=== PATIENT | female | born 1970 | race Two or more races ===

== ENCOUNTER 2023-03-02 00:39 | Emergency (ER) | payer MEDICAID ==
[~2023-03-02] VITALS: Ht 162.6 cm; Wt 94.0 kg
[2023-03-02 02:12] LABS: Basophils # (auto) 0.1 10 ^3/uL (0-0.2); Basophils % (auto) 0.7 % (0.0-2.0); Eosinophils # (auto) 0.2 10 ^3/uL (0-0.8); Eosinophils % (auto) 1.6 % (0.0-7.0); Hemoglobin 14.9 g/dL (12.2-16.2); Lymphocytes # (auto) 3.1 10 ^3/uL (0.4-5.4); Lymphocytes % (auto) 31.4 % (10.0-50.0); Mean Corpuscular Hemoglobin 30.8 pg (28.0-32.0); Mean Corpuscular Volume 90.6 fL (80.0-100.0); Monocytes # (auto) 0.4 10 ^3/uL (0-1.3); Monocytes % (auto) 4.5 % (0.0-12.0); Neutrophils # (auto) 6.1 10 ^3/uL (1.6-8.6); Neutrophils % (auto) 61.8 % (37.0-80.0); Nucleated Red Blood Cells % 0.1 %; Red Blood Cells 4.85 10^6/uL (4.0-5.20); Red Cell Distribution Width 15.3 % (11.8-14.3); White Blood Cell 9.9 10^3/uL (4.4-10.8)
[2023-03-02 02:31] LABS: CRP High Sensitivity 0.36 mg/dL (< 0.3)
[2023-03-02 02:47] LABS: Albumin 3.3 g/dL (3.4-5.0); Calcium 8.7 mg/dL (8.5-10.1); Potassium 3.8 mmol/L (3.5-5.1)
[2023-03-02 02:51] LABS: BUN/Creatinine Ratio 17.1 (10.0-20.0); Bilirubin, Total 0.2 mg/dL (0.2-1.0); Total Protein 7.3 g/dL (6.4-8.2)
[2023-03-02] MEDS ORDERED: HYDROcodone-ACET 10/325MG TAB PO ONE (06:00)
[2023-03-02] MEDS ORDERED: cloNIDine HCL 0.1 MG TAB PO ONE (06:00)
[2023-03-02 09:53] VITALS: BP 124/65; PULSE 78; RESP 18; TEMP 98; O2SAT 95
== END 2023-03-02 10:01 | disposition home or self-care (01) ==
LOC: ER 00:39
DX: E11.621 Type 2 diabetes mellitus with foot ulcer (principal); L97.529 Non-pressure chronic ulcer of other part of left foot with unspecified severity; Z88.6 Allergy status to analgesic agent; Z88.8 Allergy status to other drugs, medicaments and biological substances
CPT/HCPCS: 36415; 73700; 80053; 85025; 85652; 86141

== ENCOUNTER 2023-06-10 22:28 | Emergency (ER) | payer MEDICAID ==
[~2023-06-10] VITALS: Ht 162.6 cm; Wt 90.0 kg
[2023-06-10 22:57] VITALS: PULSE 10; RESP 10; O2SAT 92
[2023-06-10 23:22] LABS: Basophils # (auto) 0.1 10 ^3/uL (0-0.2); Basophils % (auto) 0.6 % (0.0-2.0); Eosinophils # (auto) 0.1 10 ^3/uL (0-0.8); Eosinophils % (auto) 1.4 % (0.0-7.0); Hematocrit 42.1 % (36.0-46.0); Hemoglobin 14.4 g/dL (12.2-16.2); Lymphocytes # (auto) 2.9 10 ^3/uL (0.4-5.4); Lymphocytes % (auto) 36.4 % (10.0-50.0); Mean Corpuscular Hemoglobin 31.2 pg (28.0-32.0); Mean Corpuscular Hgb Conc. 34.1 g/dL (32.0-36.0); Mean Corpuscular Volume 91.3 fL (80.0-100.0); Monocytes # (auto) 0.4 10 ^3/uL (0-1.3); Monocytes % (auto) 5.3 % (0.0-12.0); Neutrophils # (auto) 4.5 10 ^3/uL (1.6-8.6); Neutrophils % (auto) 56.3 % (37.0-80.0); Red Blood Cells 4.61 10^6/uL (4.0-5.20); Red Cell Distribution Width 15.3 % (11.8-14.3); White Blood Cell 8.1 10^3/uL (4.4-10.8)
[2023-06-10 23:37] LABS: INR 1.02 (0.9-1.15); Partial Thromboplastin Time 29.9 SEC (24.5-34.5); Prothrombin Time 10.7 sec (9.3-11.8)
[2023-06-10 23:40] LABS: Alanine Aminotransferase 14 U/L (7-40); Albumin 3.9 g/dL (3.2-4.8); Alkaline Phosphatase 81 U/L (46-116); Anion Gap 4 (5-15); Aspartate Aminotransferase 13 U/L (13-40); BUN/Creatinine Ratio 15.1 (10.0-20.0); Bilirubin, Total 0.2 mg/dL (0.2-1.0); Blood Urea Nitrogen 16 mg/dL (9-23); Calcium 9.1 mg/dL (8.7-10.4); Carbon Dioxide 27 mmol/L (20-30); Chloride 105 mmol/L (98-107); Glucose 127 mg/dL (74-106); Magnesium 1.9 mg/dL (1.6-2.6); Potassium 3.8 mmol/L (3.5-5.1); Sodium 136 mmol/L (136-145); Total Protein 6.6 g/dL (5.7-8.2)
[2023-06-11] MEDS ORDERED: GABAPENTIN 300 MG CAP PO ONE (00:30)
[2023-06-11] MEDS ORDERED: PREGABALIN CAPSULE 75 MG CAP PO ONE (00:30)
[2023-06-11] MEDS ORDERED: ONDANSETRON HCL 4 MG/2 ML VIAL IV ONE ×2 (02:00→04:15)
[2023-06-11] MEDS ORDERED: MORPHINE SULFATE 4 MG/ML SYR/VIAL IV ONE (02:00)
[2023-06-11 02:23] LABS: Urine Bacteria NONE SEEN /hpf (None Seen); Urine Blood Negative /uL (Negative); Urine Clarity Clear (Clear); Urine Color Colorless (Yellow); Urine Protein, UAD 2+ (Negative); Urine Specific Gravity 1.017 (1.001-1.035); Urine Urobilinogen Normal (Negative); Urine WBC 7 /hpf (0 - 5); Urine pH 6.5 (5.0-8.0)
[2023-06-11] MEDS ORDERED: hydrALAZINE HCL 20 MG/ML VL IV ONE (02:45)
[2023-06-11] MEDS ORDERED: HYDROmorphone HCL 2 MG/ML VL/or syr IV ONE ×2 (04:15→06:45)
[2023-06-11 07:44] VITALS: BP 185/95; PULSE 100; RESP 22; TEMP 98.3; O2SAT 96
[2023-06-11] MEDS ORDERED: LABETALOL HCL 5 MG/ML 4ML SYRINGE IV ONE (08:00)
== END 2023-06-11 08:13 | disposition short-term general hospital (02) ==
LOC: ER 22:28 → EDBD 22:28 → ER 06-11 08:13
DX: G83.4 Cauda equina syndrome (principal); M54.50 Low back pain, unspecified; R32 Unspecified urinary incontinence; M40.56 Lordosis, unspecified, lumbar region; G89.29 Other chronic pain; R07.89 Other chest pain; Z88.8 Allergy status to other drugs, medicaments and biological substances
CPT/HCPCS: 36415; 72148; 74176; 80053; 81001; 83735; 83880; 84484; 85025; 85610; 85730; 93005; 96374; 96375; 96376; 99291; J0360; J1170; J2270; J2405; J3490

== ENCOUNTER 2024-08-31 22:49 | Inpatient (IN) | payer MEDICAID ==
[~2024-08-31] VITALS: Ht 160 cm; Wt 99.8 kg
--- NOTE | 2024-08-31 23:10 | ED.PDOC ---
HPI Comments 54-year-old female came to the emergency room due to chest pains. Patient has history of hypertension, diabetes, [place], coronary artery disease, status post stents. States about 3 hours ago, after the shower, she felt dizzy, lightheaded, and started having diffuse chest pains, pressure, constant, nonradiating, associated shortness of breath, nausea/vomiting. Patient's have medicated with nitrox2 but offered no relief.. Chief Complaint: Chest Pain Time Seen by MD: 23:10 Reviewed Notes: Nurses Notes Allergies: Coded Allergies: Ketorolac Tromethamine (Verified Allergy, Unknown, 03/02/23) Nifedipine (Verified Allergy, Unknown, 03/02/23) Information Source: Patient Mode of Arrival: Ambulatory Severity: Moderate Timing: Hours Duration: Since onset Prehospital treatment: NTG Location: Chest (R), Chest (L) Radiation: No Radiation Quality: Pressure Onset: With Light Exertion Cardiac Risk Factors: HTN, Diabetes History of: Similar pain in past, [place] Associated Signs and Symptoms: SOB, Diaphoresis Past Medical History PAST MEDICAL HISTORY: CAD, DM, HTN, [place], Denies Surgical History: Cholecystectomy, PTCA, Denies all surgeries Surgical History (Other): Laparoscopy PIE FILLER History: Denies all PIE FILLER Hx Family History Family History: Reviewed,noncontributory to illness Social History Smoker: Non-Smoker Alcohol: Denies ETOH Use Drugs: Denies Drug Use Lives In: Home Constitutional: reports: diaphoresis; denies: chills, fatigue, fever, malaise, sweats, weakness, others EENTM: denies: blurred vision, double vision, ear bleeding, ear discharge, ear drainage, ear pain, ear ringing, eye pain, eye redness, hearing loss, mouth pain, mouth swelling, nasal discharge, nose bleeding, nose congestion, nose pain, photophobia, tearing, throat pain, throat swelling, voice changes, others Respiratory: reports: SOB at rest, shortness of breath, SOB with excertion; denies: cough, hemoptysis, orthopnea, stridor, wheezing, others Cardiovascular: reports: chest pain, dizzy spells, diaphoresis; denies: Dyspnea on exertion, edema, irregular heart beat, left arm pain, lightheadedness, palpitations, PND, syncope, others Gastrointestinal: reports: nausea, vomiting; denies: abdomen distended, abdominal pain, blood streaked bowels, constipated, diarrhea, dysphagia, difficulty swallowing, hematemesis, melena, poor appetite, poor fluid intake, rectal bleeding, rectal pain, others Genitourinary: denies: abnormal vagina bleeding, burning, dyspareunia, dysuria, flank pain, frequency, hematuria, incontinence, pain, , vagina discharge, urgency, others Neurological: denies: dizziness, fainting, headache, left sided numbness, left sided weakness, numbness, paresthesia, pre-existing deficit, right sided nu mbness, right sided weakness, seizure, speech problems, tingling, tremors, weakness, others Musculoskeletal: denies: back pain, gout, joint pain, joint swelling, muscle pain, muscle stiffness, neck pain, others Integumetry: denies: bruises, change in color, change in hair/nails, dryness, laceration, lesions, lumps, rash, wounds, others Allergic/Immunocompromised: denies: Difficulty Healing, Frequent Infections, Hives, Itching, others Hematologic/Lymphatic: denies: anemia, blood clots, easy bleeding, easy bruising, swollen glands, others Endocrine: denies: excessive hunger, excessive sweating, excessive thirst, excessive urination, flushing, intolerance to cold, intolerance to heat, unexplained weight gain, unexplained weight loss, others Psychiatric: denies: anxiety, bipolar disorder, depression, hopeless, panic disorder, schizophrenia, sleepless, suicidal, others Physical Exam General Appearance: No Apparent Distress, Normal HEENT: Normal ENT Inspection, Pharynx Normal, TMs Normal Neck: Full Range of Motion, Non-Tender, Normal, Normal Inspection Respiratory: Chest Non-Tender, Lungs Clear, No Accessory Muscle Use, No Respiratory Distress, Normal Breath Sounds Cardiovascular: No Edema, No JVD, No Murmur, No Gallop, Normal Peripheral Pulses, Regular Rate/Rhythm Breast Exam: Deferred Gastrointestinal: No Organomegaly, Non Tender, No Pulsatile Mass, Normal Bowel Sounds, Soft Genitalia: Deferred Pelvic: Deferred Rectal: Deferred Extremities: No calf tenderness, Normal capillary refill, Normal inspection, Normal range of motion, Non-tender, No pedal edema Musculoskeletal : Apperance: Normal Neurologic: Alert, bag builder II-XII nml as Tested, No Motor Deficits, Normal Affect, Normal Mood, No Sensory Deficits Cerebellar Function: Normal Reflexes: Normal Skin: Dry, Normal Color, Warm Lymphatic: No Adenopathy Was a procedure done? Was a procedure done?: No CP Differential Dx Differential Diagnosis: Angina, Anxiety / Panic Attack, Electrolyte Disorder Differential Diagnosis: Angina, Chest Wall Pain, Costochondritis, Esophageal reflux/spasm, Gastritis, Myocardial Infarction, Pneumonia X-Ray, Labs, Meds, VS Vital Signs Date Time Temp Pulse Resp B/P (MAP) Pulse Ox O2 Delivery O2 Flow Rate FiO2 09/01/24 00:23 98.2 80 16 151/96 (114) 95 98.2 08/31/24 23:58 78 08/31/24 23:04 99.6 81 18 164/101 (122) 98 08/31/24 22:57 74 Lab Test 09/01/24 00:14 08/31/24 23:02 Range/Units Troponin I High Sensitivity Pending 17 </=34 ng/L White Blood Count 6.6 4.4-10.8 10^3/uL Red Blood Count 4.59 4.0-5.20 10^6/uL Hemoglobin 13.6 12.2-16.2 g/dL Hematocrit 41.1 36.0-46.0 % Mean Corpuscular Volume 89.5 80.0-100.0 fL Mean Corpuscular Hemoglobin 29.7 28.0-32.0 pg Mean Corpuscular Hemoglobin Concent 33.2 32.0-36.0 g/dL Red Cell Distribution Width 15.6 H 11.8-14.3 % Platelet Count 220 140-450 10^3/uL Mean Platelet Volume 7.4 6.9-10.8 fL Neutrophils (%) (Auto) 51.3 37.0-80.0 % Lymphocytes (%) (Auto) 39.2 10.0-50.0 % Monocytes (%) (Auto) 7.0 0.0-12.0 % Eosinophils (%) (Auto) 1.7 0.0-7.0 % Basophils (%) (Auto) 0.8 0.0-2.0 % Neutrophils # (Auto) 3.4 1.6-8.6 10 ^3/uL Lymphocytes # (Auto) 2.6 0.4-5.4 10 ^3/uL Monocytes # (Auto) 0.5 0-1.3 10 ^3/uL Eosinophils # (Auto) 0.1 0-0.8 10 ^3/uL Basophils # (Auto) 0 0-0.2 10 ^3/uL Nucleated Red Blood Cells 0.0 % Sodium Level 133 L 136-145 mmol/L Potassium Level 4.7 3.5-5.1 mmol/L Chloride Level 101 98-107 mmol/L Carbon Dioxide Level 27 20-31 mmol/L Anion Gap 5 5-15 Blood Urea Nitrogen 19 9-23 mg/dL Creatinine 1.73 H 0.550-1.02 mg/dL Glomerular Filtration Rate Calc 34 >90 mL/min BUN/Creatinine Ratio 11.0 10.0-20.0 Serum Glucose 187 H 74-106 mg/dL Calcium Level 10.3 8.7-10.4 mg/dL B-Type Natriuretic Peptide 88.73 0-100 pg/mL CHEST RADIOGRAPH Indication: chest pain Technique: Frontal and lateral view of the chest was obtained Comparison: None FINDINGS: Lines and Tubes: None Lungs: Clear Pleura: No effusion. No pneumothorax. Cardiomediastinal contours: Unremarkable Bones: Unremarkable IMPRESSION: 1. No evidence of acute disease. Time of 1ST Reevaluation: 23:06 Reevaluation 1ST: Unchanged Patient Education/Counseling: Diagnosis, Treatment Family Education/Counseling: Diagnosis, Treatment Departure 1 Departure Time of Disposition: 00:40 (Patient presented with chest pain that was concerning for possible STEMI, ACS, PE, Pneumonia, Muscle Strain, COPD, Dissection. Data: 1. I ordered and reviewed the result of at least 3 labs including a CBC, BMP, and Troponin. 2. I independently interpreted the following tests: EKG which shows sinus arrhythmia and Chest X-ray which shows benign chest.Risk:This patient has a high risk of morbidity due to further diagnostic testing or treatment and may suffer from an acute cardiac or respiratory disorder. Workup reveals concern for ACS and patient should be admitted for further workup and possible expert consultation. ) Impression: Primary Impression: Acute chest pain Disposition: ADMITTED INPATIENT Admit to: Med Surg Condition: Serious Critical Care Note Critical Care Time?: Yes (35 min-critical care time only) Critical care comment: Acute chest pain Authorized and Performed by: Osmar Lozano MD Total critical care time: Approximately 36 minutes Due to a high probability of clinically significant, life threatening deterioration, the patient required my highest level of preparedness to intervene emergently and I personally spent this critical care time directly and personally managing the patient. This critical care time included obtaining a history; examining the patient; pulse oximetry; ordering and review of studies; arranging urgent treatment with development of a management plan; evaluation of patient's response to treatment; frequent reassessment; and, discussions with other providers. This critical care time was performed to assess and manage the high probability of imminent, life-threatening deterioration that could result in multi-organ failure. It was exclusive of separately billable procedures and treating other patients and teaching time. Please see my other sections and the rest of the note for further information on patient assessment and treatment. Stability Stability form required: No Heart Score Heart Score: Heart Score Response (Comments) Value History Highly Suspicious 2 EKG Repolarization Disturb 1 Age 45-64 1 Risk Factors >3 or Hx ASHD 2 Troponin 1-2 x's Normal limit 1 Total 7 I personally scribed for OSMAR LOZANO MD ([facility]) on 08/31/24 at 23:10. Electronically submitted by Gianfranco Ortez ([facility]). I personally scribed for OSMAR LOZANO MD ([facility]IS) on 08/31/24 at 23:27. Electronically submitted by Gianfranco Ortez ([facility]). I personally scribed for OSMAR LOZANO MD ([facility]IS) on 08/31/24 at 23:58. Electronically submitted by Gianfranco Ortez ([facility]). OSMAR LOZANO MD Aug 31, 2024 23:10
[2024-08-31 23:23] LABS: Basophils # (auto) 0 10 ^3/uL (0-0.2); Basophils % (auto) 0.8 % (0.0-2.0); Chloride 101 mmol/L (98-107); Eosinophils # (auto) 0.1 10 ^3/uL (0-0.8); Eosinophils % (auto) 1.7 % (0.0-7.0); Hematocrit 41.1 % (36.0-46.0); Hemoglobin 13.6 g/dL (12.2-16.2); Lymphocytes # (auto) 2.6 10 ^3/uL (0.4-5.4); Lymphocytes % (auto) 39.2 % (10.0-50.0); Mean Corpuscular Hemoglobin 29.7 pg (28.0-32.0); Mean Corpuscular Hgb Conc. 33.2 g/dL (32.0-36.0); Mean Corpuscular Volume 89.5 fL (80.0-100.0); Monocytes # (auto) 0.5 10 ^3/uL (0-1.3); Neutrophils # (auto) 3.4 10 ^3/uL (1.6-8.6); Neutrophils % (auto) 51.3 % (37.0-80.0); Platelet Count (auto) 220 10^3/uL (140-450); Potassium 4.7 mmol/L (3.5-5.1); Red Blood Cells 4.59 10^6/uL (4.0-5.20); Red Cell Distribution Width 15.6 % (11.8-14.3); White Blood Cell 6.6 10^3/uL (4.4-10.8)
[2024-08-31 23:24] LABS: Anion Gap 5 (5-15); Calcium 10.3 mg/dL (8.7-10.4); Carbon Dioxide 27 mmol/L (20-31)
--- NOTE | 2024-08-31 23:25 | DVH ---
CHEST RADIOGRAPH Indication: chest pain Technique: Frontal and lateral view of the chest was obtained Comparison: None FINDINGS: Lines and Tubes: None Lungs: Clear Pleura: No effusion. No pneumothorax. Cardiomediastinal contours: Unremarkable Bones: Unremarkable IMPRESSION: 1. No evidence of acute disease.
[2024-08-31 23:29] LABS: Blood Urea Nitrogen 19 mg/dL (9-23)
[2024-08-31 23:44] LABS: Glucose 187 mg/dL (74-106); Sodium 133 mmol/L (136-145)
[2024-09-01 00:23] VITALS: PULSE 80; RESP 16; O2SAT 95
[2024-09-01] MEDS: ASPirin 81 mg TAB PO ONE (00:45)
[2024-09-01] MEDS: MORPHINE SULFATE 4 MG/ML SYR/VIAL IV ONE (00:45)
[2024-09-01] MEDS: NITROGLYCERIN 0.4 MG SL TAB SL ONE (00:45)
[2024-09-01] MEDS: ONDANSETRON HCL 4 MG/2 ML VIAL IV ONE (00:45)
[2024-09-01 01:18] LABS: Urine Bacteria None Seen /hpf (None Seen)
[2024-09-01 01:29] LABS: Urine Blood Negative /uL (Negative); Urine Clarity Clear (Clear); Urine Color Light-Yellow (Yellow); Urine Protein, UAD 1+ (Negative); Urine Specific Gravity 1.012 (1.001-1.035); Urine Squamous Epithelial Cell FEW /hpf (<5); Urine Urobilinogen Normal (Negative); Urine WBC <1 /hpf (0 - 5)
--- NOTE | 2024-09-01 03:44 | DVHHPRES ---
History of Present Illness Resident Creating Document: LANNY POLANCO RESIDENT History of Present Illness Patient is a 54-year-old female with past medical history of coronary artery disease, [place] x2 s/p PCI x2 stents, hypertension, type 2 diabetes, urethral carcinoma, cauda equina syndrome s/p laminectomy, who came in due to chest pain. According to the patient's yesterday on 08/31/2024 in the evening she was taking a shower when all of a sudden she started feeling dizziness, shortly thereafter she started experiencing chest pain which was sharp and shooting in character, constant in nature in 8/10 in intensity. Patient localizes the pain to the midepigastrium and radiating bilaterally to the back, she tried nitroglycerin x2 but it did not relieve her pain. Per patient, she had a similar chest pain when she was diagnosed with myocardial infarction in June 2024. Of note, patient says that she skipped her aspirin and Plavix on 08/31/2024 and 08/30/2024. She also notes 3 episodes of vomiting, watery vomitus no blood. Patient is also on antibiotics for a left lower extremity blister along the lateral surface of her heel. Serial troponins were 17, 17, 20. Past Medical History coronary artery disease, [place] x2 s/p PCI x2 stents, hypertension, type 2 diabetes, urethral carcinoma, cauda equina syndrome s/p laminectomy Past Surgical History Laminectomy x3, urethral surgery, cholecystectomy, tonsillectomy, C-sections x4 Past Social History Smoking: Quit 1-1/2 years ago, prior to that was smoking 2-3 cigarettes per day for 15 years Alcohol: Denies Drugs: Denies Review of Systems Constitutional: Yes: Chills, Malaise; No: Fever, Sweats, Weakness, Other Eyes: No: Pain, Vision change, Conjunctivae inflammation, Eyelid inflammation, Other, Redness ENT: No: Ear pain, Ear discharge, Nose pain, Nose discharge, Nose congestion, Mouth pain, Mouth swelling, Throat pain, Throat swelling, Other Respiratory: Shortness of breath; No: Cough, Dry, SOB with excertion, Wheezing, Hemoptysis, Pleuritic Pain, Sputum, Wheezing, Other Cardiovascular: Chest Pain, Palpitations; No: Orthopnea, Paroxysmal Noc. Dyspnea, Edema, Lt Headedness, Other Gastrointestinal: Nausea; No: Vomiting, Abdominal Pain, Diarrhea, Constipation, Melena, Hematochezia, Other Genitourinary: No Dysuria, No Frequency, No Incontinence, No Hematuria, No Retention, No Other Musculoskeletal: leg pain (Bilateral lower extremity pain and paresthesias); No: other, neck pain, shoulder pain, arm pain, back pain, hand pain, foot pain Skin: No: Rash, Lesions, Jaundice, Bruising, Other Neurological: No: Weakness, Numbness, Incoordination, Change in speech, Confusion, Seizures, Other Allergies: Coded Allergies: Ketorolac Tromethamine (Verified Allergy, Unknown, 03/02/23) Nifedipine (Verified Allergy, Unknown, 03/02/23) Exam Vital Signs Vital Signs Date Time Temp Pulse Resp B/P (MAP) Pulse Ox O2 Delivery O2 Flow Rate FiO2 09/01/24 01:58 68 09/01/24 01:19 16 134/62 09/01/24 01:18 97 09/01/24 00:23 Room Air* 0 21 09/01/24 00:23 98.2 98.2 General Appearance: Alert, Oriented X3, Cooperative, mild distress HEENT: Atraumatic, PERRLA, EOMI, Mucous membr. moist/pink Respiratory: Other (Trace wheezes, L>R) Cardiovascular: Regular rate, Normal S1, Normal S2 Abdominal: Normal bowel sounds, Soft, Other (Right and left upper quadrant tenderness to palpation, with pain radiating to bilateral back and shoulders) Extremities: No clubbing, No cyanosis, Other (Decreased pedal pulses, blistering lesion along the lateral surface of left heel) Neuro: Normal speech, Strength at 5/5 X4 ext Psych/Mental Status: Mental status NL, Mood NL Labs/Xrays Labs Test 09/01/24 01:56 09/01/24 00:50 08/31/24 23:02 Range/Units Troponin I High Sensitivity 20 </=34 ng/L Urine Color Light-yellow Yellow Urine Clarity Clear Clear Urine pH 6.0 5.0-9.0 Urine Specific Tiger 1.012 1.001-1.035 Urine Protein 1+ H Negative Urine Ketones Negative Negative Urine Blood Negative Negative /uL Urine Nitrite Negative Negative Urine Bilirubin Negative Negative Urine Urobilinogen Normal Negative mg/dL Urine Leukocyte Esterase Negative Negative /uL Urine RBC 1 0 - 4 /hpf Urine WBC <1 0 - 5 /hpf Urine Squamous Epithelial Cells Few <5 /hpf Urine Bacteria None seen None Seen /hpf Urine Glucose 4+ H Normal mg/dL White Blood Count 6.6 4.4-10.8 10^3/uL Red Blood Count 4.59 4.0-5.20 10^6/uL Hemoglobin 13.6 12.2-16.2 g/dL Hematocrit 41.1 36.0-46.0 % Mean Corpuscular Volume 89.5 80.0-100.0 fL Mean Corpuscular Hemoglobin 29.7 28.0-32.0 pg Mean Corpuscular Hemoglobin Concent 33.2 32.0-36.0 g/dL Red Cell Distribution Width 15.6 H 11.8-14.3 % Platelet Count 220 140-450 10^3/uL Mean Platelet Volume 7.4 6.9-10.8 fL Neutrophils (%) (Auto) 51.3 37.0-80.0 % Lymphocytes (%) (Auto) 39.2 10.0-50.0 % Monocytes (%) (Auto) 7.0 0.0-12.0 % Eosinophils (%) (Auto) 1.7 0.0-7.0 % Basophils (%) (Auto) 0.8 0.0-2.0 % Neutrophils # (Auto) 3.4 1.6-8.6 10 ^3/uL Lymphocytes # (Auto) 2.6 0.4-5.4 10 ^3/uL Monocytes # (Auto) 0.5 0-1.3 10 ^3/uL Eosinophils # (Auto) 0.1 0-0.8 10 ^3/uL Basophils # (Auto) 0 0-0.2 10 ^3/uL Nucleated Red Blood Cells 0.0 % Sodium Level 133 L 136-145 mmol/L Potassium Level 4.7 3.5-5.1 mmol/L Chloride Level 101 98-107 mmol/L Carbon Dioxide Level 27 20-31 mmol/L Anion Gap 5 5-15 Blood Urea Nitrogen 19 9-23 mg/dL Creatinine 1.73 H 0.550-1.02 mg/dL Glomerular Filtration Rate Calc 34 >90 mL/min BUN/Creatinine Ratio 11.0 10.0-20.0 Serum Glucose 187 H 74-106 mg/dL Calcium Level 10.3 8.7-10.4 mg/dL B-Type Natriuretic Peptide 88.73 0-100 pg/mL Assessment/Plan Assessment/Plan Chest pain: Rule out ACS Coronary artery disease, s/p PCI x2 - CXR: No evidence of acute disease. - serial troponins , , 20 - BNP 88.73 - aspirin 325mg once, atorvastatin 40mg, clopidogrel 75 mg - metoprolol 25mg - ordered echocardiogram OTNO, likely hemodynamically mediated/VMN on possible CKD - monitor Type 2 diabetes Hypertension - metoprolol 25 mg - mild sliding scale insulin Peripheral arterial disease - ordered arterial Doppler Blister/ulcer along left lateral heel - wound consult Goals of care: Full code, discussed for >16 minutes on 09/01/2024 Plan discussed with patient Plan discussed with Dr. Rutherford Plan discussed with: Patient, Other (RN) My Orders Orders - LANNY POLANCO RESIDENT Procedure Category Date Status Time Admit ADMIT 09/01/24 Verified 03:32 Nitroglycerin PHA 09/01/24 Verified Sublingual (Ntrostat 03:45 Notify Of Changes SHAWN 09/01/24 Verified From Base 03:32 Urine Sodium LAB 09/01/24 Verified 03:32 Urine Creatinine LAB 09/01/24 Verified 03:32 Urine LAB 09/01/24 Verified Protein/Creatinine Lipase LAB 09/01/24 Verified 03:32 Lactic Acid W/ Reflex LAB 09/01/24 Verified Order 03:32 Blood Culture TONY 09/01/24 Verified 03:32 * Wound Consult CONS 09/01/24 Verified Hemoglobin A1c LAB 09/01/24 Verified 03:32 Glucose Blood PHA 09/01/24 Verified (Accu-Chek Comfort 07:00 Mild Sliding Scale PHA 09/01/24 Verified 07:00 Dextrose 50% Syringe PHA 09/01/24 Verified 03:45 Date of Service: Sep 01, 2024 Billing Provider: BEAU RUTHERFORD MD Common Visit Codes: [id number] INP/OBS CARE (HIGH) LANNY POLANCO Sep 01, 2024 03:44 BEAU RUTHERFORD MD Sep 01, 2024 09:06
[2024-09-01] MEDS ORDERED: DEXTROSE (50%) 50ML SYRG IV PRN (03:45)
[2024-09-01] MEDS ORDERED: NITROGLYCERIN 0.4 MG SL TAB SL PRN (03:45)
[2024-09-01 04:30] VITALS: PULSE 67; RESP 12; TEMP 98.1; O2SAT 95
[2024-09-01 04:35] VITALS: PULSE 67
[2024-09-01] MEDS ORDERED: ALBUTEROL SULF 2.5 MG/0.5ML(0.5%) NEB SOLN NEB PRN (05:00)
[2024-09-01] MEDS ORDERED: IPRATROPIUM BROM 0.5 MG/2.5ML INH SOL NEB PRN (05:00)
[2024-09-01 05:54] VITALS: BP 134/56
[2024-09-01] MEDS: ACETAMINOPHEN 325 MG TAB PO ONE (06:35)
[2024-09-01] MEDS: ACCU-CHEK COMFORT CURVE STRIP VI SCH (06:42)
[2024-09-01] MEDS: InsuLIN REG 1unit/0.01ml Soln (100units/ml) SC SCH (06:48)
--- NOTE | 2024-09-01 07:05 | ECG ---
[facility] Test Date: 2024-09-01 Test Time: 01:58:26 Pat Name: JANY LEAL Department: ED Room: [address] [place] [address] Gender: F Building Certifier: LELIA : 1969-09-23 Requested By: OSMAR ESTRADA Order Number: [id number] Reading MD: Erwin Mayers Measurements Intervals [place] Rate: 68 P: 5 CT: 190 QRS: -39 QRSD: 109 T: 126 QT: 409 QTc: 436 Interpretive Statements Sinus rhythm LVH with secondary repolarization abnormality Anterior Q waves, possibly due to LVH Electronically Signed On 09-03-2024 15:56:57 PST by Erwin Mayers Please click the below link to view image of tracing.
--- NOTE | 2024-09-01 07:05 | ECG ---
[facility] Test Date: 2024-08-31 Test Time: 23:58:52 Pat Name: JANY LEAL Department: ED Room: [address] [place] [address] A Gender: F [employer] Member: LELIA : 1969-09-23 Requested By: OSMAR ESTRADA Order Number: [id number] Reading MD: Erwin Mayers Measurements Intervals [place] Rate: 78 P: 63 W[place]: 188 QRS: -21 QRSD: 113 T: 114 QT: 409 QTc: 466 Interpretive Statements Sinus rhythm Incomplete left bundle branch block LVH with secondary repolarization abnormality Anterior Q waves, possibly due to LVH Electronically Signed On 09-03-2024 15:56:17 PST by Erwin Mayers Please click the below link to view image of tracing.
[2024-09-01 07:06] LABS: Protein, Urine 86.4 mg/dL (1-14)
[2024-09-01 07:09] LABS: Creatinine, Urine 30.88 mg/dL (30.0-125.0); Creatinine, Urine 30.9 mg/dL (30.0-125.0); Urine Protein/Creatinine Ratio 2.8
[2024-09-01] MEDS: METOPROLOL SUCCINATE XL 50 MG TAB PO ONE (07:17)
[2024-09-01] MEDS: ATORVASTATIN 20 MG TAB PO ONE (07:18)
[2024-09-01 07:24] LABS: Cholesterol 233 mg/dL (< 200); Triglycerides 577 mg/dL (< 150)
[2024-09-01 07:26] LABS: HDL Cholesterol 38 mg/dL (40-59)
[2024-09-01 07:27] LABS: Alanine Aminotransferase 22 U/L (7-40); Albumin 4.2 g/dL (3.2-4.8); Alkaline Phosphatase 83 U/L (46-116); Anion Gap 7 (5-15); Aspartate Aminotransferase 21 U/L (13-40); BUN/Creatinine Ratio 13.6 (10.0-20.0); Blood Urea Nitrogen 23 mg/dL (9-23); Calcium 10.4 mg/dL (8.7-10.4); Carbon Dioxide 27 mmol/L (20-31); Chloride 100 mmol/L (98-107); Glucose 143 mg/dL (74-106); Potassium 4.4 mmol/L (3.5-5.1); Sodium 134 mmol/L (136-145); Total Protein 7.1 g/dL (5.7-8.2)
[2024-09-01 07:28] LABS: Bilirubin, Total 0.2 mg/dL (0.2-1.0)
--- NOTE | 2024-09-01 08:34 | ECG ---
[facility] Test Date: 2024-08-31 Test Time: 22:57:50 Pat Name: JANY LEAL Department: ER Room: [address] [place] [address] A Gender: F Bin Worker: : 1969-09-23 Requested By: OSMAR ESTRADA Order Number: [id number] Reading MD: Erwin Mayers Measurements Intervals [place] Rate: 74 P: 37 [place]: 186 QRS: -23 QRSD: 113 T: 132 QT: 403 QTc: 448 Interpretive Statements Sinus rhythm Incomplete left bundle branch block LVH with secondary repolarization abnormality Anterior Q waves, possibly due to LVH Electronically Signed On 09-03-2024 15:55:40 PST by Erwin Mayers Please click the below link to view image of tracing.
[2024-09-01 08:45] LABS: Lipase 49 U/L (12-53)
[2024-09-01] MEDS ORDERED: CLOPIDOGREL BISULFATE 75 MG TAB PO SCH (10:00)
[2024-09-01] MEDS ORDERED: ATORVASTATIN 20 MG TAB PO SCH (22:00)
--- NOTE | 2024-09-02 04:34 | DVHDSRES ---
Discharge Summary Date of Admission Resident Creating Document: LANNY POLANCO RESIDENT Sep 01, 2024 at 03:32 Date of Discharge: Sep 01, 2024 Admitting Diagnosis Chest pain Labs/Diagnostic Data: Laboratory Results Test 09/01/24 06:42 09/01/24 06:15 09/01/24 01:56 09/01/24 00:57 POC Glucose 143 mg/dl (70-106) Sodium Level 134 mmol/L (136-145) Potassium Level 4.4 mmol/L (3.5-5.1) Chloride Level 100 mmol/L (98-107) Carbon Dioxide Level 27 mmol/L (20-31) Anion Gap 7 (5-15) Blood Urea Nitrogen 23 mg/dL (9-23) Creatinine 1.69 mg/dL (0.550-1.02) Glomerular Filtration Rate Calc 35 mL/min (>90) BUN/Creatinine Ratio 13.6 (10.0-20.0) Serum Glucose 143 mg/dL (74-106) Hemoglobin A1c 9.3 % A1C (<5.7) Lactic Acid Level 1.3 mmol/L (0.4-2.0) Calcium Level 10.4 mg/dL (8.7-10.4) Total Bilirubin 0.2 mg/dL (0.2-1.0) Aspartate Amino Transferase (AST) 21 U/L (13-40) Alanine Aminotransferase (ALT) 22 U/L (7-40) Alkaline Phosphatase 83 U/L (46-116) Creatine Kinase 63 U/L (34-145) Total Protein 7.1 g/dL (5.7-8.2) Albumin 4.2 g/dL (3.2-4.8) Triglycerides Level 577 mg/dL (< 150) Cholesterol Level 233 mg/dL (< 200) LDL Cholesterol mg/dL (< 100) HDL Cholesterol 38 mg/dL (40-59) Lipase 49 U/L (12-53) Troponin I High Sensitivity 20 ng/L (</=34) Urine Creatinine 30.88 mg/dL (30.0-125.0) Urine Protein/Creatinine Ratio 2.80 Urine Sodium 67 mmol/L (40-220) Urine Total Protein 86.4 mg/dL (1-14) Test 09/01/24 00:50 08/31/24 23:02 Urine Color Light-yellow (Yellow) Urine Clarity Clear (Clear) Urine pH 6.0 (5.0-9.0) Urine Specific [place] 1.012 (1.001-1.035) Urine Protein 1+ (Negative) Urine Ketones Negative (Negative) Urine Blood Negative /uL (Negative) Urine Nitrite Negative (Negative) Urine Bilirubin Negative (Negative) Urine Urobilinogen Normal mg/dL (Negative) Urine Leukocyte Esterase Negative /uL (Negative) Urine RBC 1 /hpf (0 - 4) Urine WBC <1 /hpf (0 - 5) Urine Squamous Epithelial Cells Few /hpf (<5) Urine Bacteria None seen /hpf (None Seen) Urine Glucose 4+ mg/dL (Normal) White Blood Count 6.6 10^3/uL (4.4-10.8) Red Blood Count 4.59 10^6/uL (4.0-5.20) Hemoglobin 13.6 g/dL (12.2-16.2) Hematocrit 41.1 % (36.0-46.0) Mean Corpuscular Volume 89.5 fL (80.0-100.0) Mean Corpuscular Hemoglobin 29.7 pg (28.0-32.0) Mean Corpuscular Hemoglobin Concent 33.2 g/dL (32.0-36.0) Red Cell Distribution Width 15.6 % (11.8-14.3) Platelet Count 220 10^3/uL (140-450) Mean Platelet Volume 7.4 fL (6.9-10.8) Neutrophils (%) (Auto) 51.3 % (37.0-80.0) Lymphocytes (%) (Auto) 39.2 % (10.0-50.0) Monocytes (%) (Auto) 7.0 % (0.0-12.0) Eosinophils (%) (Auto) 1.7 % (0.0-7.0) Basophils (%) (Auto) 0.8 % (0.0-2.0) Neutrophils # (Auto) 3.4 10 ^3/uL (1.6-8.6) Lymphocytes # (Auto) 2.6 10 ^3/uL (0.4-5.4) Monocytes # (Auto) 0.5 10 ^3/uL (0-1.3) Eosinophils # (Auto) 0.1 10 ^3/uL (0-0.8) Basophils # (Auto) 0 10 ^3/uL (0-0.2) Nucleated Red Blood Cells 0.0 % B-Type Natriuretic Peptide 88.73 pg/mL (0-100) Other Laboratory Tests 09/01/24 06:15 08/31/24 23:02 Brief Hx & Hospital Course: Patient is a 54-year-old female with past medical history of coronary artery disease, [place] x2 s/p PCI x2 stents, hypertension, type 2 diabetes, urethral carcinoma, cauda equina syndrome s/p laminectomy, who came in due to chest pain. According to the patient's yesterday on 08/31/2024 in the evening she was taking a shower when all of a sudden she started feeling dizziness, shortly thereafter she started experiencing chest pain which was sharp and shooting in character, constant in nature in 8/10 in intensity. Patient localizes the pain to the midepigastrium and radiating bilaterally to the back, she tried nitroglycerin x2 but it did not relieve her pain. Per patient, she had a similar chest pain when she was diagnosed with myocardial infarction in June 2024. Of note, patient says that she skipped her aspirin and Plavix on 08/31/2024 and 08/30/2024. She also notes 3 episodes of vomiting, watery vomitus no blood. Patient is also on antibiotics for a left lower extremity blister along the lateral surface of her heel. Serial troponins were 17, 17, 20. Patient was given a loading dose of aspirin 325 mg, atorvastatin 40, clopidogrel 75 mg and metoprolol 25 mg. Echocardiogram, wound consult and arterial Doppler was ordered with the patient and patient was also started on a mild sliding scale. However, patient left against medical advice before further evaluation and management could be completed. Condition at Discharge: Undetermined Final Diagnosis/Problems List Chest pain, rule out ACS Coronary artery disease s/p PCI x2 TONO likely hemodynamically mediated/VMN on possible CKD Type 2 diabetes, uncontrolled Hypertension Peripheral arterial disease Discharge Disposition: AMA Discharge Statement: "Patient was advised to return to the ER or call 911 if any headaches, dizziness, shortness of breath, chest pain, abdominal pain, bleeding, fevers, or worsening of medical condition. Patient was counseled about treatment plan, medications, possible side effects, patientverbalized understanding. All questions were answered to the best of my ability. This discharge took greater then 30 minutes in planning, reviewing documentation, counseling the patient, and discussing with other team members." ASSESSMENT ASSESSMENT Assessment Date of Service: Sep 01, 2024 Billing Provider: BEAU TAVAREZ MD Common Visit Codes: 82189-BTF/OBS DISCH DAY <30MIN LANNY POLANCO RESIDENT Sep 02, 2024 04:34 BEAU TAVAREZ MD Sep 02, 2024 10:09
[2024-09-02] MEDS ORDERED: METOPROLOL SUCCINATE XL 50 MG TAB PO SCH (10:00)
== END 2024-09-01 07:32 | disposition left against medical advice (07) | DRG 198 ==
LOC: ER 22:49 → TELE 09-01 03:32
PROVIDERS: ADMIT Internal Medicine; ATTEND Internal Medicine
DX: I24.9 Acute ischemic heart disease, unspecified (principal); N17.0 Acute kidney failure with tubular necrosis; E11.22 Type 2 diabetes mellitus with diabetic chronic kidney disease; I25.10 Atherosclerotic heart disease of native coronary artery without angina pectoris; E11.51 Type 2 diabetes mellitus with diabetic peripheral angiopathy without gangrene; I12.9 Hypertensive chronic kidney disease with stage 1 through stage 4 chronic kidney disease, or unspecified chronic kidney disease; N18.9 Chronic kidney disease, unspecified; Z53.29 Procedure and treatment not carried out because of patient's decision for other reasons; Z95.5 Presence of coronary angioplasty implant and graft; Z88.8 Allergy status to other drugs, medicaments and biological substances; I25.2 Old myocardial infarction; Z90.49 Acquired absence of other specified parts of digestive tract; Z87.891 Personal history of nicotine dependence
CPT/HCPCS: 36415; 71046; 80048; 80053; 80061; 81001; 82550; 82570; 82962; 83036; 83605; 83690; 83880; 84156; 84300; 84484; 85025; 87040; 93005; 99291; G0378; J1815; J2405

== ENCOUNTER 2024-09-17 12:30 | Emergency (ER) | payer MEDICAID ==
[~2024-09-17] VITALS: Ht 162.6 cm; Wt 100.0 kg
[2024-09-17 12:30] VITALS: BP 133/76; RESP 18; O2SAT 95
[2024-09-17 12:36] VITALS: PULSE 82
--- NOTE | 2024-09-17 12:41 | ECG ---
[facility] Test Date: 2024-09-17 Test Time: 12:36:53 Pat Name: JANY LEAL Department: ER Room: Gender: F Special Service Representative: ARLIN : 1969-09-23 Requested By: KIRSTEN BROWN Order Number: [id number] Reading MD: Measurements Intervals [place] Rate: 82 P: 4 VT: 172 QRS: -41 QRSD: 102 T: 105 QT: 370 QTc: 432 Interpretive Statements Sinus rhythm Left axis deviation Anterior infarct, old Abnormal T, consider ischemia, lateral leads Baseline wander in lead(s) V1,V2,V3,V4 Please click the below link to view image of tracing.
--- NOTE | 2024-09-17 13:03 | DVH ---
CHEST RADIOGRAPH Indication: CP Technique: Single frontal view of the chest was obtained COMPARISON: None FINDINGS: Lines and Tubes: None Lungs: Clear Pleura: No effusion. No pneumothorax. Cardiomediastinal contours: Unremarkable Bones: Unremarkable IMPRESSION: No acute disease.
[2024-09-17 13:08] LABS: Basophils # (auto) 0 10 ^3/uL (0-0.2); Basophils % (auto) 0.7 % (0.0-2.0); Eosinophils # (auto) 0.1 10 ^3/uL (0-0.8); Eosinophils % (auto) 1.6 % (0.0-7.0); Hematocrit 39.2 % (36.0-46.0); Lymphocytes # (auto) 1.1 10 ^3/uL (0.4-5.4); Lymphocytes % (auto) 23.6 % (10.0-50.0); Mean Corpuscular Hemoglobin 29.5 pg (28.0-32.0); Mean Corpuscular Hgb Conc. 33.1 g/dL (32.0-36.0); Mean Corpuscular Volume 89.2 fL (80.0-100.0); Monocytes # (auto) 0.4 10 ^3/uL (0-1.3); Monocytes % (auto) 9.3 % (0.0-12.0); Neutrophils % (auto) 64.8 % (37.0-80.0); Nucleated Red Blood Cells % 0.1 %; Platelet Count (auto) 146 10^3/uL (140-450); Red Blood Cells 4.39 10^6/uL (4.0-5.20); Red Cell Distribution Width 15.4 % (11.8-14.3); White Blood Cell 4.6 10^3/uL (4.4-10.8)
--- NOTE | 2024-09-17 13:23 | ED.PDOC ---
HPI Comments 54 y.o female with PMHx of CAD, HTN, DM, MIx2, PTCA x2, urethral carcinoma, Cauda equina s/p laminectomy, presents to the ED for a chief complaint of diffused chest pain that presented a couple weeks ago. Patient reports she was seen 2 weeks ago at this ED but had to AMA due to a venous ablation procedure she needed to get done. Patient reports since, she has had a soreness to her chest and shoulders but now has radiated to her back and flank region with nausea. She had SOB last night but since has subsided. Patient reports pain is almost similar to previous VT's but soreness feels different. Previous VT she developed SOB with hypotension but at this time has neither. Patient reports having 2 VT's back to back recently with a PTCA in place in June 2024. Patient denies any substance, alcohol or tobacco use. Chief Complaint: Chest Pain Time Seen by MD: 13:00 Primary Care Provider: KATERINA Reviewed Notes: Nurses Notes, Medications, Allergies Allergies: Coded Allergies: Ketorolac Tromethamine (Verified Allergy, Unknown, 03/02/23) Nifedipine (Verified Allergy, Unknown, 03/02/23) Information Source: Patient Mode of Arrival: Ambulatory Severity: Moderate Timing: Weeks Duration: Since onset Location: Substernal Radiation: Shoulder (R), Shoulder (L) Quality: Aching, Other (soreness ) Onset: At Rest Cardiac Risk Factors: Hyperlipidemia, HTN, Diabetes, Other PE Risk Factors: None History of: Similar pain in past, VT Associated Signs and Symptoms: N/V (nausea only ), Back Pain, Other (flank) Past Medical History PAST MEDICAL HISTORY: CAD, DM, HTN, VT Past Medical History (Other): urethral carcinoma, cauda equina syndrome s/p laminectomy Surgical History: Cholecystectomy, PTCA Surgical History (Other): venous ablation, laminectomy FENCE ERECTOR History: Denies all FENCE ERECTOR Hx Family History Family History: Reviewed,noncontributory to illness Social History Smoker: Non-Smoker Alcohol: Denies ETOH Use Drugs: Denies Drug Use Lives In: Home Constitutional: denies: chills, diaphoresis, fatigue, fever, malaise, sweats, weakness, others EENTM: denies: blurred vision, double vision, ear bleeding, ear discharge, ear drainage, ear pain, ear ringing, eye pain, eye redness, hearing loss, mouth pain, mouth swelling, nasal discharge, nose bleeding, nose congestion, nose pain, photophobia, tearing, throat pain, throat swelling, voice changes, others Respiratory: denies: cough, hemoptysis, orthopnea, SOB at rest, shortness of b reath, SOB with excertion, stridor, wheezing, others Cardiovascular: reports: chest pain; denies: dizzy spells, diaphoresis, Dyspnea on exertion, edema, irregular heart beat, left arm pain, lightheadedness, palpit ations, PND, syncope, others Gastrointestinal: reports: nausea; denies: abdomen distended, abdominal pain, blood streaked bowels, constipated, diarrhea, dysphagia, difficulty swallowing, hematemesis, melena, poor appetite, poor fluid intake, rectal bleeding, rectal pain, vomiting, others Genitourinary: reports: flank pain; denies: abnormal vagina bleeding, burning, dyspareunia, dysuria, frequency, hematuria, incontinence, pain, , vagina discharge, urgency, others Neurological: denies: dizziness, fainting, headache, left sided numbness, left sided weakness, numbness, paresthesia, pre-existing deficit, right sided numbness, right sided weakness, seizure, speech problems, tingling, tremors, weakness, others Musculoskeletal: reports: back pain; denies: gout, joint pain, joint swelling, muscle pain, muscle stiffness, neck pain, others Integumetry: denies: bruises, change in color, change in hair/nails, dryness, laceration, lesions, lumps, rash, wounds, others Allergic/Immunocompromised: denies: Difficulty Healing, Frequent Infections, Hives, Itching, others Hematologic/Lymphatic: denies: anemia, blood clots, easy bleeding, easy bruising, swollen glands, others Endocrine: denies: excessive hunger, excessive sweating, excessive thirst, excessive urination, flushing, intolerance to cold, intolerance to heat, unexplained weight gain, unexplained weight loss, others Psychiatric: denies: anxiety, bipolar disorder, depression, hopeless, panic disorder, schizophrenia, sleepless, suicidal, others All Other Systems: Reviewed and Negative Physical Exam General Appearance: No Apparent Distress, Normal HEENT: Normal ENT Inspection, Pharynx Normal, TMs Normal Neck: Full Range of Motion, Non-Tender, Normal, Normal Inspection Respiratory: Chest Non-Tender, Lungs Clear, No Accessory Muscle Use, No Respiratory Distress, Normal Breath Sounds Cardiovascular: No Edema, No JVD, No Murmur, No Gallop, Normal Peripheral Pulses, Regular Rate/Rhythm Breast Exam: Deferred Gastrointestinal: No Organomegaly, Non Tender, No Pulsatile Mass, Normal Bowel Sounds, Soft Genitalia: Deferred Pelvic: Deferred Rectal: Deferred Extremities: No calf tenderness, Normal capillary refill, Normal inspection, Normal range of motion, Non-tender, No pedal edema Musculoskeletal : Apperance: Normal Neurologic: Alert, douper II-XII nml as Tested, No Motor Deficits, Normal Affect, Normal Mood, No Sensory Deficits Cerebellar Function: Normal Reflexes: Normal Skin: Dry, Normal Color, Warm Lymphatic: No Adenopathy Was a procedure done? Was a procedure done?: No CP Differential Dx Differential Diagnosis: N/A Differential Diagnosis: CHF Differential Diagnosis: Angina, Chest Wall Pain, Cholelithiasis, Esophageal reflux/spasm, Myocardial Infarction, Pericarditis, Pneumonia, Pneumothorax, Pulmonary Embolus X-Ray, Labs, Meds, VS Vital Signs Date Time Temp Pulse Resp B/P (MAP) Pulse Ox O2 Delivery O2 Flow Rate FiO2 09/17/24 12:36 82 09/17/24 12:30 97.8 77 18 133/76 (95) 95 Lab Test 09/17/24 12:43 Range/Units White Blood Count 4.6 4.4-10.8 10^3/uL Red Blood Count 4.39 4.0-5.20 10^6/uL Hemoglobin 13.0 12.2-16.2 g/dL Hematocrit 39.2 36.0-46.0 % Mean Corpuscular Volume 89.2 80.0-100.0 fL Mean Corpuscular Hemoglobin 29.5 28.0-32.0 pg Mean Corpuscular Hemoglobin Concent 33.1 32.0-36.0 g/dL Red Cell Distribution Width 15.4 H 11.8-14.3 % Platelet Count 146 140-450 10^3/uL Mean Platelet Volume 7.7 6.9-10.8 fL Neutrophils (%) (Auto) 64.8 37.0-80.0 % Lymphocytes (%) (Auto) 23.6 10.0-50.0 % Monocytes (%) (Auto) 9.3 0.0-12.0 % Eosinophils (%) (Auto) 1.6 0.0-7.0 % Basophils (%) (Auto) 0.7 0.0-2.0 % Neutrophils # (Auto) 3.0 1.6-8.6 10 ^3/uL Lymphocytes # (Auto) 1.1 0.4-5.4 10 ^3/uL Monocytes # (Auto) 0.4 0-1.3 10 ^3/uL Eosinophils # (Auto) 0.1 0-0.8 10 ^3/uL Basophils # (Auto) 0 0-0.2 10 ^3/uL Nucleated Red Blood Cells 0.1 % Sodium Level 137 136-145 mmol/L Potassium Level 4.6 3.5-5.1 mmol/L Chloride Level 105 98-107 mmol/L Carbon Dioxide Level 23 20-31 mmol/L Anion Gap 9 5-15 Blood Urea Nitrogen 19 9-23 mg/dL Creatinine 1.09 H 0.550-1.02 mg/dL Glomerular Filtration Rate Calc 60 >90 mL/min BUN/Creatinine Ratio 17.4 10.0-20.0 Serum Glucose 145 H 74-106 mg/dL Calcium Level 9.4 8.7-10.4 mg/dL Total Bilirubin 0.2 0.2-1.0 mg/dL Aspartate Amino Transferase (AST) 36 13-40 U/L Alanine Aminotransferase (ALT) 35 7-40 U/L Alkaline Phosphatase 73 46-116 U/L Troponin I High Sensitivity 20 </=34 ng/L B-Type Natriuretic Peptide 126.62 0-100 pg/mL Total Protein 6.9 5.7-8.2 g/dL Albumin 4.3 3.2-4.8 g/dL [address] [address] Ph: [phone] DIAGNOSTIC IMAGING Diagnostic Imaging Report : [id number] Signed PATIENT: JANY LEAL ACCT: [id number] UNIT: [id number] : 09/23/1969 LOC: ER ROOM / BED: / AGE / SEX: 54 / F ADM STATUS: REG ER SERVICE [id number] ORDERING PHYSICIAN: KIRSTEN BROWN MD PROCEDURE(s): CXRP - CHEST PORTABLE REASON: CP ORDER NUMBER(s): [id number], ACCESSION NUMBER(s): [id number] CHEST RADIOGRAPH Indication: CP Technique: Single frontal view of the chest was obtained COMPARISON: None FINDINGS: Lines and Tubes: None Lungs: Clear Pleura: No effusion. No pneumothorax. Cardiomediastinal contours: Unremarkable Bones: Unremarkable IMPRESSION: No acute disease. ATED BY: JAKE FOSTER MD DICTATED DATE/TIME: 09/17/24 1259 SIGNED BY: JAKE FOSTER MD SIGNED DATE/TIME: 09/17/24 125 CC: X-Ray, Labs, Meds, VS Comment 54-year-old female with history of multiple chronic comorbidities here today with complaints of chest pain. Vital signs stable, afebrile. Physical exam asthma without any acute findings. Labs overall reassuring without evidence of negative for pain. EKG without evidence of acute ischemia. Chest x-ray without evidence of pneumonia or pneumothorax. Given patient's extensive medical history, my plan was to admit the patient for further telemetry monitoring which she was aware of and I communicated to her. However, patient eloped from the emergency department before receiving her a repeat troponin blood draw. Multiple call attempts were made with no answer, messages were left the patient's cellphone number. Patient eloped from the ER Images Reviewed?: Images reviewed and evaluated by me Time of 1ST Reevaluation: 13:15 Reevaluation 1ST: Unchanged Patient Education/Counseling: Diagnosis, Treatment, Prognosis Family Education/Counseling: No Family Present Departure 1 Departure Time of Disposition: 18:56 Impression: Primary Impression: Chest pain Disposition: 07 LEFT AWOL/ELOPED Condition: Guarded Critical Care Note Critical Care Time?: No Stability Stability form required: No Heart Score Heart Score: Heart Score Response (Comments) Value History Highly Suspicious 2 EKG Repolarization Disturb 1 Age 45-64 1 Risk Factors >3 or Hx ASHD 2 Troponin Normal limit 0 Total 6 I personally scribed for ELIEZER KENT MD ([email or web address]) on 09/17/24 at 13:23. Electronically submitted by Maria Guadalupe Pimentel ([facility]). I personally scribed for ELIEZER KENT MD ([facility]) on 09/17/24 at 13:36. Electronically submitted by Maria Guadalupe Pimentel ([facility]). ELIEZER KENT MD Sep 17, 2024 13:23
[2024-09-17 13:29] LABS: Alanine Aminotransferase 35 U/L (7-40); Albumin 4.3 g/dL (3.2-4.8); Alkaline Phosphatase 73 U/L (46-116); Anion Gap 9 (5-15); Aspartate Aminotransferase 36 U/L (13-40); BUN/Creatinine Ratio 17.4 (10.0-20.0); Blood Urea Nitrogen 19 mg/dL (9-23); Calcium 9.4 mg/dL (8.7-10.4); Carbon Dioxide 23 mmol/L (20-31); Chloride 105 mmol/L (98-107); Potassium 4.6 mmol/L (3.5-5.1); Sodium 137 mmol/L (136-145); Total Protein 6.9 g/dL (5.7-8.2)
[2024-09-17 14:09] LABS: Bilirubin, Total 0.2 mg/dL (0.2-1.0); Glucose 145 mg/dL (74-106)
== END 2024-09-17 18:11 | disposition left against medical advice (07) ==
LOC: ER 12:36
DX: R07.89 Other chest pain (principal); I10 Essential (primary) hypertension; E11.9 Type 2 diabetes mellitus without complications; I25.10 Atherosclerotic heart disease of native coronary artery without angina pectoris; I25.2 Old myocardial infarction; J45.909 Unspecified asthma, uncomplicated; R06.02 Shortness of breath; Z98.890 Other specified postprocedural states; Z90.49 Acquired absence of other specified parts of digestive tract
CPT/HCPCS: 36415; 71045; 80053; 83880; 84484; 85025; 93005

== ENCOUNTER 2024-10-18 21:43 | Inpatient (IN) | payer MEDICAID ==
[~2024-10-18] VITALS: Ht 162.6 cm; Wt 97.5 kg
--- NOTE | 2024-10-18 22:23 | ED.PDOC ---
History of Present Illness HPI Comments This is a 55-year-old, morbidly obese female that presents with complaint chest, right shoulder, and right arm pain, today. Patient endorses on sudden unprovoked onset of symptoms, earlier, this evening, with initial onset of right arm numbness, while out shopping. She comments on numbness turning into th robbing pain that began radiating to her right shoulder and across her entire chest wall within the past hour. Patient reports an extensive medical history that includes: CAD, CKF, DMII, HTN, 2xMI s/p PCI x2 stents on ASA and Plavix, PAD, cholecystectomy, urethral carcinoma, cauda equina syndrome s/p laminectomy, and morbid obesity. She denies having any shortness a breath, palpitations, nausea, vomiting, tingling, weakness, or other associated symptoms or modifiers at this time. Chief Complaint: Chest Pain Time Seen by MD: 22:00 Primary Care Provider: KATERINA Reviewed Notes: Nurses Notes, Medications, Allergies Allergies: Coded Allergies: Ketorolac Tromethamine (Verified Allergy, Unknown, 03/02/23) Nifedipine (Verified Allergy, Unknown, 03/02/23) Information Source: Patient Mode of Arrival: Ambulatory Severity: Moderate Timing: Hours Duration: Since onset Prehospital treatment: None Past Medical History PAST MEDICAL HISTORY: CAD, CKF, DM (Type 2), HTN, ND (ND x2 s/p PCI x2 stents) Past Medical History (Other): urethral carcinoma, cauda equina syndrome s/p laminectomy, peripheral arterial disease On aspirin and Plavix Surgical History: Cholecystectomy, PTCA Surgical History (Other): venous ablation, laminectomy STUD MASTER/MISTRESS History: Denies all STUD MASTER/MISTRESS Hx Family History Family History: Reviewed,noncontributory to illness Social History Smoker: Non-Smoker Alcohol: Denies ETOH Use Drugs: Denies Drug Use Lives In: Home All Other Systems: Reviewed and Negative (Comprehensive systems review obtained and negative except for what is stated in the HPI.) Physical Exam General Appearance: Mild Distress, Obese, Other (Anxious appearing) HEENT: Normal ENT Inspection, Pharynx Normal, TMs Normal Neck: Full Range of Motion, Non-Tender, Normal, Normal Inspection Respiratory: Chest Non-Tender, Lungs Clear, No Accessory Muscle Use, No Respiratory Distress, Normal Breath Sounds Cardiovascular: No Edema, No JVD, No Murmur, No Gallop, Normal Peripheral Pulses, Regular Rate/Rhythm Breast Exam: Deferred Gastrointestinal: No Organomegaly, Non Tender, No Pulsatile Mass, Normal Bowel Sounds, Soft Genitalia: Deferred Pelvic: Deferred Rectal: Deferred Extremities: No calf tenderness, Normal capillary refill, Normal inspection, Normal range of motion, Non-tender, No pedal edema Musculoskeletal : Apperance: Normal Neurologic: Alert, mortuary beautician II-XII nml as Tested, No Motor Deficits, Normal Affect, Normal Mood, No Sensory Deficits Cerebellar Function: Normal Reflexes: Normal Skin: Dry, Normal Color, Warm Lymphatic: No Adenopathy Was a procedure done? Was a procedure done?: No EKG EKG : Pulse Rate (adult): 76 [place]: Normal Cardiac Rhythm: NSR Block: None Hypertrophy: None ST: Normal Differential Dx Considerations may include: ND, PE, ACS, anxiety, panic attack, URI, viral syndrome, among others X-Ray, Labs, Meds, VS Vital Signs Date Time Temp Pulse Resp B/P (MAP) Pulse Ox O2 Delivery O2 Flow Rate FiO2 10/18/24 22:58 71 10/18/24 22:23 76 10/18/24 22:07 97.9 76 18 125/59 (81) 95 10/18/24 21:58 76 Lab Test 10/18/24 23:00 10/18/24 22:02 Range/Units Troponin I High Sensitivity Pending 16 </=34 ng/L White Blood Count 6.3 4.4-10.8 10^3/uL Red Blood Count 3.77 L 4.0-5.20 10^6/uL Hemoglobin 12.0 L 12.2-16.2 g/dL Hematocrit 34.1 L 36.0-46.0 % Mean Corpuscular Volume 90.5 80.0-100.0 fL Mean Corpuscular Hemoglobin 31.9 28.0-32.0 pg Mean Corpuscular Hemoglobin Concent 35.2 32.0-36.0 g/dL Red Cell Distribution Width 16.4 H 11.8-14.3 % Platelet Count 187 140-450 10^3/uL Mean Platelet Volume 7.4 6.9-10.8 fL Neutrophils (%) (Auto) 54.1 37.0-80.0 % Lymphocytes (%) (Auto) 35.9 10.0-50.0 % Monocytes (%) (Auto) 6.6 0.0-12.0 % Eosinophils (%) (Auto) 2.7 0.0-7.0 % Basophils (%) (Auto) 0.7 0.0-2.0 % Neutrophils # (Auto) 3.4 1.6-8.6 10 ^3/uL Lymphocytes # (Auto) 2.3 0.4-5.4 10 ^3/uL Monocytes # (Auto) 0.4 0-1.3 10 ^3/uL Eosinophils # (Auto) 0.2 0-0.8 10 ^3/uL Basophils # (Auto) 0 0-0.2 10 ^3/uL Nucleated Red Blood Cells 0.1 % Sodium Level 132 L 136-145 mmol/L Potassium Level 5.3 H 3.5-5.1 mmol/L Chloride Level 102 98-107 mmol/L Carbon Dioxide Level 28 20-31 mmol/L Anion Gap 2 L 5-15 Blood Urea Nitrogen 26 H 9-23 mg/dL Creatinine 1.82 H 0.550-1.02 mg/dL Glomerular Filtration Rate Calc 32 >90 mL/min BUN/Creatinine Ratio 14.3 10.0-20.0 Serum Glucose 174 H 74-106 mg/dL Calcium Level 9.5 8.7-10.4 mg/dL Time of 1ST Reevaluation: 22:30 Reevaluation 1ST: Unchanged Patient Education/Counseling: Diagnosis, Treatment Family Education/Counseling: No Family Present Additional Information Previous visit documents reviewed: 09/01/2024 and 09/17/2024 The following tests were ordered, and results were reviewed by me: Additional Information was gathered from interviewing the following independent historians: I reviewed and agreed with the following test results read by other providers: I discussed treatment and results with medical personnel and: patient Departure 1 Departure Time of Disposition: 23:16 (Patient presented with chest pain that was concerning for possible STEMI, ACS, PE, Pneumonia, Muscle Strain, COPD, Dissection. Data: 1. I ordered and reviewed the result of at least 3 labs including a CBC, BMP, and Troponin. 2. I independently interpreted the following tests: EKG which shows normal sinus and Chest X-ray which shows benign chest.Risk:This patient has a high risk of morbidity due to further diagnostic testing or treatment and may suffer from an acute cardiac or respiratory disorder. Workup reveals right arm paresthesias and concern for ACS and patient should be admitted for further workup and possible expert consultation. ) Impression: Primary Impression: Acute chest pain Additional Impression: Arm paresthesia, right Disposition: 09 ADMITTED INPATIENT Admit to: Med Surg Condition: Serious Critical Care Note Critical Care Time?: Yes Critical care comment: Acute chest pain Authorized and Performed by: Osmar Lozano MD Total critical care time: Approximately 42 minutes Due to a high probability of clinically significant, life threatening deterioration, the patient required my highest level of preparedness to intervene emergently and I personally spent this critical care time directly and personally managing the patient. This critical care time included obtaining a history; examining the patient; pulse oximetry; ordering and review of studies; arranging urgent treatment with development of a management plan; evaluation of patient's response to treatment; frequent reassessment; and, discussions with other providers. This critical care time was performed to assess and manage the high probability of imminent, life-threatening deterioration that could result in multi-organ failure. It was exclusive of separately billable procedures and treating other patients and teaching time. Please see my other sections and the rest of the note for further information on patient assessment and treatment. Stability Stability form required: No Heart Score Heart Score: Heart Score Response (Comments) Value History Moderate Suspicious 1 EKG Normal 0 Age 45-64 1 Risk Factors >3 or Hx ASHD 2 Troponin 1-2 x's Normal limit 1 Total 5 I personally scribed for OSMAR LOZANO MD ([email or web address]) on 10/18/24 at 22:23. Electronically submitted by Rudy Massey ([email or web address]). OSMAR LOZANO MD Oct 18, 2024 22:23
[2024-10-18 22:29] LABS: Basophils # (auto) 0 10 ^3/uL (0-0.2); Basophils % (auto) 0.7 % (0.0-2.0); Eosinophils # (auto) 0.2 10 ^3/uL (0-0.8); Eosinophils % (auto) 2.7 % (0.0-7.0); Hematocrit 34.1 % (36.0-46.0); Lymphocytes # (auto) 2.3 10 ^3/uL (0.4-5.4); Lymphocytes % (auto) 35.9 % (10.0-50.0); Mean Corpuscular Hemoglobin 31.9 pg (28.0-32.0); Mean Corpuscular Hgb Conc. 35.2 g/dL (32.0-36.0); Mean Corpuscular Volume 90.5 fL (80.0-100.0); Monocytes # (auto) 0.4 10 ^3/uL (0-1.3); Monocytes % (auto) 6.6 % (0.0-12.0); Neutrophils # (auto) 3.4 10 ^3/uL (1.6-8.6); Neutrophils % (auto) 54.1 % (37.0-80.0); Nucleated Red Blood Cells % 0.1 %; Platelet Count (auto) 187 10^3/uL (140-450); Red Blood Cells 3.77 10^6/uL (4.0-5.20); Red Cell Distribution Width 16.4 % (11.8-14.3); White Blood Cell 6.3 10^3/uL (4.4-10.8)
[2024-10-18 22:32] LABS: Chloride 102 mmol/L (98-107)
[2024-10-18 22:33] LABS: Anion Gap 2 (5-15); Carbon Dioxide 28 mmol/L (20-31)
[2024-10-18 22:34] LABS: Calcium 9.5 mg/dL (8.7-10.4)
[2024-10-18 22:38] LABS: BUN/Creatinine Ratio 14.3 (10.0-20.0)
[2024-10-18 22:39] LABS: Blood Urea Nitrogen 26 mg/dL (9-23); Glucose 174 mg/dL (74-106); Potassium 5.3 mmol/L (3.5-5.1); Sodium 132 mmol/L (136-145)
--- NOTE | 2024-10-18 22:59 | DVH ---
EXAM: CT HEAD WITHOUT CONTRAST INDICATION: right arm parasthesias and chest pain TECHNIQUE: CT of the head without intravenous contrast. Radiation Dose Information: CT Dose: CTDI volume is 56.04 mGy. Dose-length product is 992.32 mGy*cm The dose indicators for CT are the volume Computed Tomography (CT) Dose Index (CTDIvol) and the Dose Length Product (DLP), and are measured in units of mGy and mGy-cm, respectively. These indicators are not patient dose, but values generated from the CT scanner acquisition factors. The report includes radiation exposure data for exposures received during this examination. COMPARISON: None FINDINGS: There is no evidence of acute intracranial hemorrhage, extra-axial collection, mass effect, midline s hift, herniation or hydrocephalus. The ventricles, sulci and cisterns are age appropriate. The dc-white differentiation is intact. Patchy periventricular and subcortical white matter hypoattenuation is nonspecific but may be related to small vessel ischemic disease. The visualized paranasal sinuses and mastoid air cells are clear. The surrounding soft tissues and osseous structures are unremarkable. IMPRESSION: 1. No acute intracranial hemorrhage. 2. No CT findings of territorial ischemia. 3. No CT findings of displaced skull fracture.
--- NOTE | 2024-10-18 23:01 | DVH ---
CHEST RADIOGRAPH Indication: right arm parasthesias and chest pressure Technique: Single frontal view of the chest was obtained Comparison: None FINDINGS: Lines and Tubes: None Lungs: No focal consolidation. Pleura: No effusion. No pneumothorax. Cardiomediastinal contours: Unremarkable Bones: No acute osseous abnormality. IMPRESSION: 1. No acute cardiopulmonary disease. 2. No significant change from 09/17/2024
[2024-10-19] VITALS (9 sets, daily range): BP systolic 108–158; BP diastolic 52–85; PULSE 68–84; RESP 16–20; TEMP 97.3–98; O2SAT 93–100
[2024-10-19] MEDS ORDERED: MORPHINE SULFATE INJ 2 MG/ml SYRG IV PRN (00:30)
[2024-10-19] MEDS ORDERED: DOCUSATE SOD 100 MG CAP PO PRN (00:30)
[2024-10-19] MEDS ORDERED: NITROGLYCERIN 0.4 MG SL TAB SL PRN ×2 (00:30)
[2024-10-19] MEDS ORDERED: ONDANSETRON HCL 4 MG/2 ML VIAL IV PRN (00:30)
[2024-10-19] MEDS ORDERED: ACETAMINOPHEN 325 MG TAB PO PRN (00:30)
--- NOTE | 2024-10-19 00:31 | DVHHP2 ---
Admitting Diagnosis: Chest pain History of Present Illness 55 yo female patient with hx of CAD, ESRD, DM II, HTN, and PR x 2 c/o sudden onset right arm, chest, and shoulder pain. Patient sts that she was shopping when she suddenly began having right arm numbness that then became a throbbing pain and started to radiate to her right shoulder and across her chest. While in the emergency department the patient was evaluated by the provider, As per provider: Labs, vital signs, and imagining monitored. Patient will be admitted for further evaluation and treatment. I discussed admission with the patient/family and is in agreement to treatment plan. Allergies: Coded Allergies: Egg-derived Products (Verified Allergy, Unknown, 10/19/24) Ketorolac Tromethamine (Verified Allergy, Unknown, 03/02/23) Nifedipine (Verified Allergy, Unknown, 03/02/23) Home Meds Reported Medications Oxycodone W/ Acetaminophen (Percocet 5/325MG) 1 Tab Tb, 2 TAB PO Q4HP PRN for PAIN SCALE 7 THRU 10, #60 TAB 10/19/24 Amoxicillin Trihydrate (Amoxicillin) 250 Mg Cap, 500 MG PO QID, MG 10/19/24 Sulfamethoxazole W/Trimethopri (Trimethoprim/Sulfamethoxa) 1 Tab Tab, 1 TAB PO BID, #14 TAB 10/19/24 Budesonide-Formoterol Fumarate (Budesonide/Formoterol Fum 160-4.5 Mcg/Act) 1 Aer Aer, 1 AER IN DAILY, AER 10/19/24 Carvedilol (Carvedilol) 12.5 Mg Tab, 12.5 MG PO Q12HR for 30 Days, MG 10/19/24 Isosorbide Mononitrate (Isosorbide Mononitrate Er) 30 Mg Tab, 30 MG PO for 30 Days, MG 10/19/24 Clopidogrel Bisulfate (Plavix) 75 Mg Tab, 1 TAB PO DAILY, #90 TAB 1 Refill 10/19/24 Semaglutide (Ozempic) 2 Mg/3 Ml Inj, 2 MG SC QWEEKLY, INJ 10/19/24 Albuterol Sulfate (Albuterol Sulfate Hfa) 108 Mcg/Act Aer, 1 PUFF PO 10/19/24 Glimepiride (Glimepiride) 4 Mg Tab, 1 TAB PO DAILY 10/19/24 Discontinued Reported Medications Losartan Potassium (Losartan Potassium) 100 Mg Tab, 100 MG PO DAILY for 30 Days, MG 10/19/24 Carvedilol (Coreg) 6.25 Mg Tab, 2 TAB PO BID, #180 TAB 1 Refill 10/19/24 Current Medications Current Medications Medications (Trade) Dose Ordered Sig/Lavon Route PRN Reason Start Time Stop Time Status Last Admin Acetaminophen/ Hydrocodone Bitart (Kyburz 5/325MG Tab) 1 tab Q4HP PRN PO MODERATE PAIN (4-6 PAIN SCALE) 10/19/24 00:30 10/19/24 01:30 Ondansetron HCl (Zofran) 4 mg Q4HP PRN IV NAUSEA / VOMITING 10/19/24 00:30 Docusate Sodium (Colace Capsule) 100 mg BIDPRN PRN PO FOR CONSTIPATION 10/19/24 00:30 Enoxaparin Sodium (Lovenox) 30 mg DAILY SC 10/19/24 10:00 10/19/24 09:03 Acetaminophen (Tylenol Tablet) 650 mg Q6HP PRN PO PAIN SCALE 1-3 OR TEMP>100.4 10/19/24 00:30 Morphine Sulfate 2 mg Q4HPRN PRN IV SEVERE PAIN (7-10 PAIN SCALE) 10/19/24 00:30 10/19/24 18:52 Nitroglycerin (Ntrostat Sublingual) 0.4 mg Q5MP PRN SL FOR CHEST PAIN 10/19/24 00:30 10/19/24 01:02 DC Pantoprazole Sodium (Protonix Tablet) 40 mg DAILY PO 10/19/24 10:00 10/19/24 09:03 Nitroglycerin (Ntrostat Sublingual) 0.4 mg Q5MINP PRN SL FOR CHEST PAIN 10/19/24 00:30 Morphine Sulfate 2 mg Q30M PRN IV FOR CHEST PAIN 10/19/24 00:30 Albuterol (Ventolin Hfa) 108 mcg Q4HPRN PRN IN SHORTNESS OF BREATH 10/19/24 00:45 10/19/24 01:16 DC Glimepiride (Amaryl Tablet) 4 mg DAILY PO 10/19/24 10:00 10/19/24 09:09 Albuterol (Ventolin Medneb) 2.5 mg Q4HPRN PRN NEB SHORTNESS OF BREATH 10/19/24 01:15 Aspirin 81 mg DAILY PO 10/19/24 10:00 10/19/24 11:09 Review of Systems Constitutional: denies chills, denies fever, denies malaise Eyes: denies eye pain, denies vision change ENT: denies ear pain, denies headache, denies nasal congestion, denies painful swallowing, denies voice change Cardiovascular: denies chest pain, denies edema, denies orthopnea, denies palpitations, denies paroxysmal nocturnal dyspnea Respiratory: denies cough, denies shortness of breath Gastrointestinal: denies constipation, denies diarrhea, denies nausea, denies vomiting Genitourinary: denies dysuria, denies frequent urination, denies urethral discharge Musculoskeletal: denies back pain, denies joint pain, denies muscle pain Skin: denies bruising, denies itching, denies rash Neurological: denies focal weakness, denies headache, denies sensory changes Psychiatric: denies anxiety, denies depression Endocrine: denies polydipsia, denies polyuria Hematologic/Lymphatic: denies easy bleeding, denies easy bruising, denies enlarged lymph nodes Allergic/Immunologic: denies allergy, denies hives Vital Signs Vital Signs Date Time Temp Pulse Resp B/P (MAP) Pulse Ox O2 Delivery O2 Flow Rate FiO2 10/19/24 20:54 98.8 76 18 128/56 (80) 94 98.8 10/19/24 18:22 Room Air* 0 21 Physical Exam General Appearance: alert, no distress HEENT: EOMI, PERRLA, normal external inspect of ears, no icterus, no nasal drainage Neck: no carotid bruit, no jugular venous distention (JVD), no lymphadenopathy Chest: normal thorax Respiratory: clear to auscultation, normal air movement Cardiovascular: regular rate and rhythm, no diastolic murmur, no jugular venous distention (JVD), no rub, no systolic murmur Abdominal: soft, no hepatomegaly, no mass, no splenomegaly, no tenderness Genitourinary: grossly normal external Musculoskeletal: no joint tenderness, no swelling Extremities: normal pulses, no calf tenderness, no clubbing, no cyanosis, no edema Skin: no bruising, no jaundice, no rash Neurological: alert, No focal deficit Results Labs Test 10/19/24 20:58 10/19/24 17:44 10/19/24 10:54 10/19/24 00:59 Range/Units POC Glucose 216 H 70-106 mg/dl Sodium Level 134 L 136-145 mmol/L Chloride Level 101 98-107 mmol/L Carbon Dioxide Level 27 20-31 mmol/L Anion Gap 6 5-15 Blood Urea Nitrogen 28 H 9-23 mg/dL Creatinine 1.70 H 0.550-1.02 mg/dL Glomerular Filtration Rate Calc 35 >90 mL/min BUN/Creatinine Ratio 16.5 10.0-20.0 Serum Glucose 242 H 74-106 mg/dL Calcium Level 9.9 8.7-10.4 mg/dL Troponin I High Sensitivity 16 </=34 ng/L Test 10/19/24 00:30 10/18/24 22:02 Range/Units Urine Color Straw Yellow Urine Clarity Turbid H Clear Urine pH 6.5 5.0-9.0 Urine Specific [place] 1.007 1.001-1.035 Urine Protein 1+ H Negative Urine Ketones Negative Negative Urine Blood 1+ H Negative /uL Urine Nitrite Negative Negative Urine Bilirubin Negative Negative Urine Urobilinogen Normal Negative mg/dL Urine Leukocyte Esterase Trace Negative /uL Urine RBC 1 0 - 4 /hpf Urine Microscopic WBC 11 H 0-5 /HPF Urine Squamous Epithelial Cells Few <5 /hpf Urine Bacteria Few H None Seen /hpf Urine Yeast (Budding) Occasional None Seen /hpf Urine Glucose 4+ H Normal mg/dL White Blood Count 6.3 4.4-10.8 10^3/uL Red Blood Count 3.77 L 4.0-5.20 10^6/uL Hemoglobin 12.0 L 12.2-16.2 g/dL Hematocrit 34.1 L 36.0-46.0 % Mean Corpuscular Volume 90.5 80.0-100.0 fL Mean Corpuscular Hemoglobin 31.9 28.0-32.0 pg Mean Corpuscular Hemoglobin Concent 35.2 32.0-36.0 g/dL Red Cell Distribution Width 16.4 H 11.8-14.3 % Platelet Count 187 140-450 10^3/uL Mean Platelet Volume 7.4 6.9-10.8 fL Neutrophils (%) (Auto) 54.1 37.0-80.0 % Lymphocytes (%) (Auto) 35.9 10.0-50.0 % Monocytes (%) (Auto) 6.6 0.0-12.0 % Eosinophils (%) (Auto) 2.7 0.0-7.0 % Basophils (%) (Auto) 0.7 0.0-2.0 % Neutrophils # (Auto) 3.4 1.6-8.6 10 ^3/uL Lymphocytes # (Auto) 2.3 0.4-5.4 10 ^3/uL Monocytes # (Auto) 0.4 0-1.3 10 ^3/uL Eosinophils # (Auto) 0.2 0-0.8 10 ^3/uL Basophils # (Auto) 0 0-0.2 10 ^3/uL Nucleated Red Blood Cells 0.1 % Plan 1. Unstable angina Monitor, cardiology consult, trend troponin, cardiac diet 2. Hyperkalemia Monitor 3. Morbid obesity Monitor, cardiac diet 4. CAD s/p PCI (2023) with stent x 2 Monitor 5. DM II & hyperglycemia Monitor, insulin ss 6. Hx uretal cancer Monitor, restart home meds 7. CKD IIIb Monitor, nephrology consult Plan discussed with: Patient, Other CHEYENNE PALACIO NP Oct 19, 2024 00:30
[2024-10-19] MEDS ORDERED: ALBU108A5 PO (00:32)
[2024-10-19] MEDS ORDERED: GLIM4TAB42 PO (00:32)
[2024-10-19] MEDS ORDERED: ALBUTEROL SULF HFA 90MCG INH 200DOSE IN PRN (00:45)
[2024-10-19 01:16] LABS: Urine Bacteria FEW /hpf (None Seen); Urine Blood 1+ /uL (Negative); Urine Budding Yeast OCCASIONAL /hpf (None Seen); Urine Clarity Turbid (Clear); Urine Protein, UAD 1+ (Negative); Urine Specific Gravity 1.007 (1.001-1.035); Urine Squamous Epithelial Cell FEW /hpf (<5); Urine Urobilinogen Normal (Negative); Urine WBC 11 /HPF (0-5); Urine pH 6.5 (5.0-9.0)
[2024-10-19] MEDS: DEXTROSE (50%) 50ML SYRG IV ONE ×2 (01:20→18:23)
[2024-10-19] MEDS: ACCU-CHEK COMFORT CURVE STRIP VI ONE (01:20)
[2024-10-19 01:23] LABS: Urine Color STRAW (Yellow)
[2024-10-19] MEDS: InsuLIN REG 1unit/0.01ml Soln (100units/ml) SC ONE (01:23)
[2024-10-19] MEDS: HYDROcodone-ACET 5/325MG TAB PO PRN (01:30)
[2024-10-19] MEDS: MORPHINE SULFATE INJ 2 MG/ml SYRG IV PRN (03:37)
[2024-10-19] MEDS ORDERED: SEMA2INJ3 SC (04:37)
[2024-10-19] MEDS ORDERED: CARV6.2517 PO (04:39)
[2024-10-19] MEDS ORDERED: CLOP75TA28 PO (04:39)
[2024-10-19] MEDS ORDERED: ISOS1TAB28 PO (04:45)
[2024-10-19] MEDS ORDERED: LOSA-535 PO (04:45)
[2024-10-19] MEDS: ENOXAPARIN SOD 30 MG/0.3 ML SYRINGE SC SCH (09:03)
[2024-10-19] MEDS: PANTOPRAZOLE 40 MG TAB PO SCH (09:03)
[2024-10-19] MEDS: GLIMEPIRIDE 2 MG TAB PO SCH (09:09)
--- NOTE | 2024-10-19 09:39 | DVHINCON2 ---
Date of service: Oct 19, 2024 History of Present Illness HPI Patient is a 55-year-old female who presented to the hospital for right shoulder/arm pain and stiffness. Mentions that she was at [facility] and discomfort increased then she decided come to the hospital. Cardiology is involved for cardiac aspects of care. The patient is known to us from prior visits in early 2023. Patient mentions that is later in 2023 she went to [facility] and had multiple PCI. Denies left-sided chest pains. It is of note that the patient does have previous neurologic problems including coded equina NS had laminectomy before. Serial troponin has been negative. EKG has been nonrevealing. Home Meds Reported Medications Losartan Potassium (Losartan Potassium) 100 Mg Tab, 100 MG PO DAILY for 30 Days, MG 10/19/24 Isosorbide Mononitrate (Isosorbide Mononitrate Er) 30 Mg Tab, 30 MG PO for 30 Days, MG 10/19/24 Clopidogrel Bisulfate (Plavix) 75 Mg Tab, 1 TAB PO DAILY, #90 TAB 1 Refill 10/19/24 Carvedilol (Coreg) 6.25 Mg Tab, 2 TAB PO BID, #180 TAB 1 Refill 10/19/24 Semaglutide (Ozempic) 2 Mg/3 Ml Inj, 2 MG SC QWEEKLY, INJ 10/19/24 Albuterol Sulfate (Albuterol Sulfate Hfa) 108 Mcg/Act Aer, 1 PUFF PO 10/19/24 Glimepiride (Glimepiride) 4 Mg Tab, 1 TAB PO DAILY 10/19/24 Past Medical History Others Past medical history includes obesity, CKD, diabetes mellitus, hypertension, coronary artery disease and status post PCI (late 2023), systolic heart failure, status post cholecystectomy urethral cancer and cauda equina. She has had laminectomy before. Patient Family History: Hypertension G8 MOTHER Smoker: No Hx (Negative) Alocohol: None Drugs: None Lives with: With family Review of Systems All Other Systems Fourteen point review of system was performed. Relevant findings as per above and as per HPI. Otherwise negative H&P Exam Vital Signs Vital Signs Date Time Temp Pulse Resp B/P (MAP) Pulse Ox O2 Delivery O2 Flow Rate FiO2 10/19/24 07:48 98.0 75 16 136/76 (96) 93 98.0 10/19/24 03:17 Room Air* 0 21 General Appeara: Well developed Head Exam: Normal inspection Eye Exam: bilateral eye PERRL Pulmonary/Respiratory: Normal inspection Cardiovascular/Chest: Normal inspection, Regular rate Peripheral Pulses: 2+ carotid (R), 2+ carotid (L), 2+ femoral (R), 2+ femoral (L), 2+ dorsalis pedis (R), 2+ dorsalis pedis (L), 2+ Radial (R), 2+ Radial (L) Abdominal Exam: Normal bowel sounds, Soft Neuro/Mental St: Alert, Oriented Appearance: Appropriate appearance Eye contact/ Speech: Cooperative Labs/Xrays Labs Test 10/19/24 09:06 10/19/24 00:59 10/19/24 00:30 10/18/24 22:02 Range/Units POC Glucose 159 H 70-106 mg/dl Troponin I High Sensitivity 16 </=34 ng/L Urine Color Straw Yellow Urine Clarity Turbid H Clear Urine pH 6.5 5.0-9.0 Urine Specific [place] 1.007 1.001-1.035 Urine Protein 1+ H Negative Urine Ketones Negative Negative Urine Blood 1+ H Negative /uL Urine Nitrite Negative Negative Urine Bilirubin Negative Negative Urine Urobilinogen Normal Negative mg/dL Urine Leukocyte Esterase Trace Negative /uL Urine RBC 1 0 - 4 /hpf Urine Microscopic WBC 11 H 0-5 /HPF Urine Squamous Epithelial Cells Few <5 /hpf Urine Bacteria Few H None Seen /hpf Urine Yeast (Budding) Occasional None Seen /hpf Urine Glucose 4+ H Normal mg/dL White Blood Count 6.3 4.4-10.8 10^3/uL Red Blood Count 3.77 L 4.0-5.20 10^6/uL Hemoglobin 12.0 L 12.2-16.2 g/dL Hematocrit 34.1 L 36.0-46.0 % Mean Corpuscular Volume 90.5 80.0-100.0 fL Mean Corpuscular Hemoglobin 31.9 28.0-32.0 pg Mean Corpuscular Hemoglobin Concent 35.2 32.0-36.0 g/dL Red Cell Distribution Width 16.4 H 11.8-14.3 % Platelet Count 187 140-450 10^3/uL Mean Platelet Volume 7.4 6.9-10.8 fL Neutrophils (%) (Auto) 54.1 37.0-80.0 % Lymphocytes (%) (Auto) 35.9 10.0-50.0 % Monocytes (%) (Auto) 6.6 0.0-12.0 % Eosinophils (%) (Auto) 2.7 0.0-7.0 % Basophils (%) (Auto) 0.7 0.0-2.0 % Neutrophils # (Auto) 3.4 1.6-8.6 10 ^3/uL Lymphocytes # (Auto) 2.3 0.4-5.4 10 ^3/uL Monocytes # (Auto) 0.4 0-1.3 10 ^3/uL Eosinophils # (Auto) 0.2 0-0.8 10 ^3/uL Basophils # (Auto) 0 0-0.2 10 ^3/uL Nucleated Red Blood Cells 0.1 % Sodium Level 132 L 136-145 mmol/L Potassium Level 5.3 H 3.5-5.1 mmol/L Chloride Level 102 98-107 mmol/L Carbon Dioxide Level 28 20-31 mmol/L Anion Gap 2 L 5-15 Blood Urea Nitrogen 26 H 9-23 mg/dL Creatinine 1.82 H 0.550-1.02 mg/dL Glomerular Filtration Rate Calc 32 >90 mL/min BUN/Creatinine Ratio 14.3 10.0-20.0 Serum Glucose 174 H 74-106 mg/dL Calcium Level 9.5 8.7-10.4 mg/dL Assessment/Plan Plan Patient is a 55-year-old female who presented to the hospital for right shoulder/arm pain and stiffness. Mentions that she was at [facility] and discomfort increased then she decided come to the hospital. Cardiology is involved for cardiac aspects of care. The patient is known to us from prior visits in early 2023. Patient mentions that is later in 2023 she went to [facility] and had multiple PCI. Denies left-sided chest pains. It is of note that the patient does have previous neurologic problems including coded equina NS had laminectomy before. Serial troponin has been negative. EKG has been nonrevealing. No JVD. [place] and moist mucosa. No carotid bruit. Not using accessory muscles of breathing. Lungs are clear to auscultation. Cardiac: Regular, no thrill/gallop. Abdomen is soft. Bowel sounds positive. No hepatomegaly. There is no peripheral edema. There is tenderness today left shoulder. Past medical history includes obesity, CKD, diabetes mellitus, hypertension, coronary artery disease and status post PCI (late 2023), systolic heart failure, status post cholecystectomy urethral cancer and cauda equina. She has had laminectomy before. Echocardiogram of February 23, 2024 (performed in the office) revealed ejection fraction of 30-35%, impaired relaxation of left ventricle, moderate left atrial enlargement, mild right atrial enlargement, mild TR/MR, anteroseptal hypokinesia and right ventricular systolic pressure of 41 mm Hg Creatinine: 1.82 Potassium: 5.3 Troponin (high sensitive close): EKG revealed sinus rhythm with no specific ST-T changes Chest x-ray revealed: IMPRESSION: 1. No acute cardiopulmonary disease. 2. No significant change from 09/17/2024 CT of the head revealed: IMPRESSION: 1. No acute intracranial hemorrhage. 2. No CT findings of territorial ischemia. 3. No CT findings of displaced skull fracture. Tele reveals sinus rhythm Patient is a 55-year-old female who presented with right-sided shoulder/arm discomfort and stiffness. Does have some tenderness in the right shoulder. Serial high sensitive troponin has been negative. Presentation is not considered acute coronary syndrome at this point. Presentation is not considered cardiac at this point. Does have baseline history of coronary artery disease and has had stents previously. Recognizing previous stents, continuation of aspirin/statin as advised. Right shoulder pain Neuropathy? Radiculopathy? Coronary artery disease, status post PCI Systolic heart failure CKD Diabetes mellitus Hypertension Cardiac suggestive for management: Manage on telemetry Follow up electrolytes and kidney function tests and correct abnormalities Request for echocardiogram Continuation of aspirin/statin is advised Evaluation and management of right shoulder/neuropathy pain as per primary team/orthopedics No ischemic workup is indicated at this point If systolic function is significantly reduced, may need LifeVest? Further evaluation and management depends on the above and clinical course Thank you for consultation A total of 55 minutes was spent reviewing the patient record, examining the patient, making a diagnostic and therapeutic plan, discussing this plan with medical personnel, following up on diagnostic studies and following the patient for clinical stability excluding any and all procedures. At least 50% of this time was spent in direct, [id number] contact. Thank you for allowing me to participate in this patient's care. Further recommendations will depend on patient's clinical course. Please do not hesitate to contact me if you have any questions or concerns. This medical document was created using electronic medical record system with [employer] computerized dictation system. Although this document has been carefully reviewed, there may still be some phonetic and typographical errors. These areas are purely typographical due to the imperfection of the software programs, and do not reflect any compromise in the patient's medical care. Plan discussed with: Patient, Other (nurse) TALYA MEDELLIN MD Oct 19, 2024 09:39
[2024-10-19] MEDS: ASPirin 81 mg TAB PO SCH (11:09)
[2024-10-19 11:11] LABS: Chloride 101 mmol/L (98-107)
[2024-10-19 11:12] LABS: Anion Gap 6 (5-15); Carbon Dioxide 27 mmol/L (20-31)
[2024-10-19 11:13] LABS: Calcium 9.9 mg/dL (8.7-10.4)
[2024-10-19 11:15] LABS: Potassium 5.4 mmol/L (3.5-5.1); Sodium 134 mmol/L (136-145)
[2024-10-19 11:18] LABS: BUN/Creatinine Ratio 16.5 (10.0-20.0)
[2024-10-19 11:30] LABS: Blood Urea Nitrogen 28 mg/dL (9-23); Glucose 242 mg/dL (74-106)
--- NOTE | 2024-10-19 12:57 | ECG ---
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
--- NOTE | 2024-10-19 12:57 | ECG ---
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
[2024-10-19] MEDS ORDERED: CARV12.544 PO (14:33)
[2024-10-19] MEDS ORDERED: BUDE1AER4 IN (14:33)
[2024-10-19] MEDS ORDERED: SULF800T23 PO (14:38)
[2024-10-19] MEDS ORDERED: PERCOT PO (14:38)
[2024-10-19] MEDS ORDERED: AMOX250C3 PO (14:38)
--- NOTE | 2024-10-19 16:54 | DVHSR ---
APPROVED REPORT EXAM: Two-dimensional and M-mode echocardiogram with Doppler and color Doppler. Blood Pressure: 136/76 mmHg INDICATION Chest Pain RISK FACTORS Height: 64, Weight: 214 DIMENSIONS LVDd5.6 (3.8-5.7cm)LA (2D)5.6 (1.9-4.0cm)Aortic Root3.7 (2.0-3.7cm) LVDs4.5 (2.5-4.0cm)LA (MM) (1.9-4.0cm)Aortic Cusp Exc2.0 (1.5-2.0cm) EF (%) 40.0 (55-70%)Rt. Atrium4.8 (1.9-4.0cm)Asc. Aorta cm Mitral Valve MitralMitral Stenosis E wave0.67m/sMV Mean GR.mmHg A wave0.99m/sMV Peak GR.48mmHg E/A ratio0.72D MVAcm2 DECEL [id number] 1/2 [id number] IVRTmsDop MVA4.49cm2 Aortic Valve Aortic ValveAortic Stenosis V10.89m/[place] Mean GR.5mmHg V21.42m/[place] Peak GR.8mmHg LVOT Diameter2.5 (1.8-2.4cm)Doppler AVA3.08cm2 Pulmonic Valve V20.92m/s Tricuspid Valve TR Velocity2.51m/s [id number] Conclusion Left ventricle: Left ventricle is normal-sized. LVEF was around 45-50%. Mild diffuse hypokinesis o f left ventricle was seen. Right ventricle was mildly dilated with normal systolic function. Mild biatrial enlargement was seen . Aortic valve: Aortic valve was trileaflet. There was no aortic stenosis/insufficiency. There was tr neymar mitral/tricuspid regurgitation. Pulmonary valve was not well visualized. Right ventricular systolic pressure was assessed at 34 mm Hg (normal). IVC was normal-sized with nor mal respiratory variation. There was no pericardial effusion.
[2024-10-19] MEDS: ALBUTEROL SULF 2.5 MG/0.5ML(0.5%) NEB SOLN ONE (17:11)
[2024-10-19] MEDS: ALBUTEROL SULF 2.5 MG/0.5ML(0.5%) NEB SOLN NEB ONE (17:17)
[2024-10-19] MEDS: SODIUM ZIRCONIUM CYCL 10 GM PAK PO ONE (18:23)
[2024-10-19] MEDS: InsuLIN REG 1unit/0.01ml Soln (100units/ml) IV ONE (18:25)
[2024-10-20] VITALS (11 sets, daily range): BP systolic 106–143; BP diastolic 40–64; PULSE 47–82; RESP 16–22; TEMP 82–98.2; O2SAT 90–100
[2024-10-20 06:25] LABS: Basophils # (auto) 0 10 ^3/uL (0-0.2); Basophils % (auto) 0.8 % (0.0-2.0); Eosinophils # (auto) 0.1 10 ^3/uL (0-0.8); Eosinophils % (auto) 1.6 % (0.0-7.0); Hematocrit 33.7 % (36.0-46.0); Hemoglobin 11.6 g/dL (12.2-16.2); Lymphocytes # (auto) 2.1 10 ^3/uL (0.4-5.4); Lymphocytes % (auto) 37.1 % (10.0-50.0); Mean Corpuscular Hgb Conc. 34.3 g/dL (32.0-36.0); Mean Corpuscular Volume 90.5 fL (80.0-100.0); Monocytes # (auto) 0.5 10 ^3/uL (0-1.3); Monocytes % (auto) 8.4 % (0.0-12.0); Neutrophils % (auto) 52.1 % (37.0-80.0); Nucleated Red Blood Cells % 0.1 %; Platelet Count (auto) 174 10^3/uL (140-450); Red Blood Cells 3.73 10^6/uL (4.0-5.20); Red Cell Distribution Width 16.2 % (11.8-14.3); White Blood Cell 5.7 10^3/uL (4.4-10.8)
--- NOTE | 2024-10-20 06:51 | DVHPN2 ---
Progress Note - Dictate Date Seen: Oct 20, 2024 Medical Necessity Reason Pt with a Central, PICC or Fol: No vital signs Vital Sign Date Time Temp Pulse Resp B/P (MAP) Pulse Ox O2 Delivery O2 Flow Rate FiO2 10/20/24 04:55 98.0 71 20 111/42 (65) 90 98.0 10/19/24 23:38 Room Air* 0 21 Total Intake and Output 10/19/24 10/19/24 10/20/24 15:00 23:00 07:00 Intake Total 720 ml 100 ml Balance 720 ml 100 ml medications Current Medications Medications Dose Ordered Sig/Lavon Route Start Time Stop Time Status Last Admin Dose Admin Acetaminophen/ Hydrocodone Bitart 1 tab Q4HP PRN PO 10/19/24 00:30 10/20/24 01:47 1 TAB Ondansetron HCl 4 mg Q4HP PRN IV 10/19/24 00:30 Docusate Sodium 100 mg BIDPRN PRN PO 10/19/24 00:30 Enoxaparin Sodium 30 mg DAILY SC 10/19/24 10:00 10/19/24 09:03 30 MG Acetaminophen 650 mg Q6HP PRN PO 10/19/24 00:30 Morphine Sulfate 2 mg Q4HPRN PRN IV 10/19/24 00:30 10/20/24 03:17 2 MG Pantoprazole Sodium 40 mg DAILY PO 10/19/24 10:00 10/19/24 09:03 40 MG Nitroglycerin 0.4 mg Q5MINP PRN SL 10/19/24 00:30 Morphine Sulfate 2 mg Q30M PRN IV 10/19/24 00:30 Glimepiride 4 mg DAILY PO 10/19/24 10:00 10/19/24 09:09 4 MG Albuterol 2.5 mg Q4HPRN PRN NEB 10/19/24 01:15 Aspirin 81 mg DAILY PO 10/19/24 10:00 10/19/24 11:09 81 MG laboratory and microbiology Test 10/20/24 05:47 Range/Units Serum Glucose Pending Assessment/Plan Patient is a 55-year-old female who presented to the hospital for right shoulder/arm pain and stiffness. Mentions that she was at [facility] and discomfort increased then she decided come to the hospital. Cardiology is involved for cardiac aspects of care. The patient is known to us from prior visits in early 2023. Patient mentions that is later in 2023 she went to [facility] and had multiple PCI. Denies left-sided chest pains. It is of note that the patient does have previous neurologic problems including coded equina NS had laminectomy before. Serial troponin has been negative. EKG has been nonrevealing. No JVD. Byers and moist mucosa. No carotid bruit. Not using accessory muscles of breathing. Lungs are clear to auscultation. Cardiac: Regular, no thrill/gallop. Abdomen is soft. Bowel sounds positive. No hepatomegaly. There is no peripheral edema. There is tenderness today left shoulder. Past medical history includes obesity, CKD, diabetes mellitus, hypertension, coronary artery disease and status post PCI (late 2023), systolic heart failure, status post cholecystectomy urethral cancer and cauda equina. She has had laminectomy before. Echocardiogram of February 23, 2024 (performed in the office) revealed ejection fraction of 30-35%, impaired relaxation of left ventricle, moderate left atrial enlargement, mild right atrial enlargement, mild TR/MR, anteroseptal hypokinesia and right ventricular systolic pressure of 41 mm Hg Creatinine: 1.82 - 1.70 - 1.56 Potassium: 5.3 - 5.4 - 5.9 - 4.6 Troponin (high sensitive close): 16 -15 - 16 EKG revealed sinus rhythm with no specific ST-T changes Chest x-ray revealed: IMPRESSION: 1. No acute cardiopulmonary disease. 2. No significant change from 09/17/2024 CT of the head revealed: IMPRESSION: 1. No acute intracranial hemorrhage. 2. No CT findings of territorial ischemia. 3. No CT findings of displaced skull fracture. Tele reveals sinus rhythm Echo revealed: Left ventricle: Left ventricle is normal-sized. LVEF was around 45-50%. Mild diffuse hypokinesis of left ventricle was seen. Right ventricle was mildly dilated with normal systolic function. Mild biatrial enlargement was seen. Aortic valve: Aortic valve was trileaflet. There was no aortic stenosis/insufficiency. There was trace mitral/tricuspid regurgitation. Pulmonary valve was not well visualized. Right ventricular systolic pressure was assessed at 34 mm Hg (normal). IVC was normal-sized with normal respiratory variation. There was no pericardial effusion. Patient is a 55-year-old female who presented with right-sided shoulder/arm discomfort and stiffness. Does have some tenderness in the right shoulder. Serial high sensitive troponin has been negative. Presentation is not considered acute coronary syndrome at this point. Presentation is not considered cardiac at this point. Does have baseline history of coronary artery disease and has had stents previously. Recognizing previous stents, continuation of aspirin/statin as advised. Right shoulder pain Neuropathy? Radiculopathy? Coronary artery disease, status post PCI Systolic heart failure CKD Diabetes mellitus Hypertension Cardiac suggestive for management: Manage on telemetry Follow up electrolytes and kidney function tests and correct abnormalities Continuation of aspirin/statin is advised Evaluation and management of right shoulder/neuropathy pain as per primary team/orthopedics No ischemic workup is indicated at this point Cardiac milton, can be followed as outpatient Further evaluation and management depends on the above and clinical course A total of 55 minutes was spent reviewing the patient record, examining the pat ient, making a diagnostic and therapeutic plan, discussing this plan with medical personnel, following up on diagnostic studies and following the patient for clinical stability excluding any and all procedures. At least 50% of this time was spent in direct, [id number] contact. Thank you for allowing me to participate in this patient's care. Further recommendations will depend on patient's clinical course. Please do not hesitate to contact me if you have any questions or concerns. This medical document was created using electronic medical record system with [employer] computerized dictation system. Although this document has been carefully reviewed, there may still be some phonetic and typographical errors. These areas are purely typographical due to the imperfection of the software programs, and do not reflect any compromise in the patient's medical care. Plan discussed with: Patient, Other (nurse) TALYA MEDELLIN MD Oct 20, 2024 06:51
[2024-10-20 07:00] LABS: Alanine Aminotransferase 20 U/L (7-40); Alkaline Phosphatase 67 U/L (46-116); Anion Gap 6 (5-15); BUN/Creatinine Ratio 18.6 (10.0-20.0); Calcium 9.9 mg/dL (8.7-10.4); Carbon Dioxide 27 mmol/L (20-31); Chloride 105 mmol/L (98-107); Potassium 4.6 mmol/L (3.5-5.1); Sodium 138 mmol/L (136-145); Total Protein 6.9 g/dL (5.7-8.2)
[2024-10-20 07:01] LABS: Albumin 4.1 g/dL (3.2-4.8); Aspartate Aminotransferase 15 U/L (13-40)
[2024-10-20 07:09] LABS: Bilirubin, Total 0.2 mg/dL (0.2-1.0); Blood Urea Nitrogen 29 mg/dL (9-23); Glucose 171 mg/dL (74-106)
--- NOTE | 2024-10-20 07:19 | ECG ---
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
--- NOTE | 2024-10-20 10:37 | DVHDS2 ---
Discharge Summary Date of Admission Oct 19, 2024 at 00:25 Date of Discharge: Oct 20, 2024 Labs/Diagnostic Data: Laboratory Results Test 10/20/24 09:24 10/20/24 05:47 10/19/24 00:59 10/19/24 00:30 POC Glucose 170 mg/dl (70-106) White Blood Count 5.7 10^3/uL (4.4-10.8) Red Blood Count 3.73 10^6/uL (4.0-5.20) Hemoglobin 11.6 g/dL (12.2-16.2) Hematocrit 33.7 % (36.0-46.0) Mean Corpuscular Volume 90.5 fL (80.0-100.0) Mean Corpuscular Hemoglobin 31.0 pg (28.0-32.0) Mean Corpuscular Hemoglobin Concent 34.3 g/dL (32.0-36.0) Red Cell Distribution Width 16.2 % (11.8-14.3) Platelet Count 174 10^3/uL (140-450) Mean Platelet Volume 7.8 fL (6.9-10.8) Neutrophils (%) (Auto) 52.1 % (37.0-80.0) Lymphocytes (%) (Auto) 37.1 % (10.0-50.0) Monocytes (%) (Auto) 8.4 % (0.0-12.0) Eosinophils (%) (Auto) 1.6 % (0.0-7.0) Basophils (%) (Auto) 0.8 % (0.0-2.0) Neutrophils # (Auto) 3.0 10 ^3/uL (1.6-8.6) Lymphocytes # (Auto) 2.1 10 ^3/uL (0.4-5.4) Monocytes # (Auto) 0.5 10 ^3/uL (0-1.3) Eosinophils # (Auto) 0.1 10 ^3/uL (0-0.8) Basophils # (Auto) 0 10 ^3/uL (0-0.2) Nucleated Red Blood Cells 0.1 % Sodium Level 138 mmol/L (136-145) Potassium Level 4.6 mmol/L (3.5-5.1) Chloride Level 105 mmol/L (98-107) Carbon Dioxide Level 27 mmol/L (20-31) Anion Gap 6 (5-15) Blood Urea Nitrogen 29 mg/dL (9-23) Creatinine 1.56 mg/dL (0.550-1.02) Glomerular Filtration Rate Calc 39 mL/min (>90) BUN/Creatinine Ratio 18.6 (10.0-20.0) Serum Glucose 171 mg/dL (74-106) Calcium Level 9.9 mg/dL (8.7-10.4) Total Bilirubin 0.2 mg/dL (0.2-1.0) Aspartate Amino Transferase (AST) 15 U/L (13-40) Alanine Aminotransferase (ALT) 20 U/L (7-40) Alkaline Phosphatase 67 U/L (46-116) Total Protein 6.9 g/dL (5.7-8.2) Albumin 4.1 g/dL (3.2-4.8) Troponin I High Sensitivity 16 ng/L (</=34) Urine Color Straw (Yellow) Urine Clarity Turbid (Clear) Urine pH 6.5 (5.0-9.0) Urine Specific [place] 1.007 (1.001-1.035) Urine Protein 1+ (Negative) Urine Ketones Negative (Negative) Urine Blood 1+ /uL (Negative) Urine Nitrite Negative (Negative) Urine Bilirubin Negative (Negative) Urine Urobilinogen Normal mg/dL (Negative) Urine Leukocyte Esterase Trace /uL (Negative) Urine RBC 1 /hpf (0 - 4) Urine Microscopic WBC 11 /HPF (0-5) Urine Squamous Epithelial Cells Few /hpf (<5) Urine Bacteria Few /hpf (None Seen) Urine Yeast (Budding) Occasional /hpf (None Urine Glucose 4+ mg/dL (Normal) Other Laboratory Tests 10/20/24 05:47 Brief Hx & Hospital Course: 55 yo female patient with hx of CAD, ESRD, DM II, HTN, and ND x 2 c/o sudden onset right arm, chest, and shoulder pain. Patient sts that she was shopping when she suddenly began having right arm numbness that then became a throbbing pain and started to radiate to her right shoulder and across her chest. While in the emergency department the patient was evaluated by the provider, As per provider: Labs, vital signs, and imagining monitored. Patient was admitted for unstable angina and was seen by cardiology. Angina was most likely related to hyperkalemia. The patient reported taking Cozaar, with a recent dose increase by her PCP, as well as a one-month supply of Lasix. The patient had mild TONO and was taking Bactrim, Cozaar, and Lasix. She was advised to stop these medications. The patient will need close follow-up with her PCP, Dr. Gomez. Chest pain was likely due to hypertension and hyperkalemia. Troponin levels were negative, estimated EF was 45-50%. UA was most likely contaminated. The patient was instructed to follow up with her PCP in one week. The patient received proper medical treatment and medications. Vital signs, Imaging and Laboratory Work was monitored. All consults recommendations were followed as provided. There were no complaints or new complaints upon discharge, all questions and concerns were answered. Patient was advised to return to the ER or call 911 if any headaches, dizziness, shortness of breath, chest pain, bleeding, fevers, or worsening of medical condition. Patient/Family was counseled about treatment plan, medications, possible side effects, patientverbalized understanding. All questions were answered to the best of my ability. The patient symptoms improved and they are okay to be DC. Condition at Discharge: Good Final Diagnosis/Problems List Unstable angina Hyperkalemia Morbid obesity CAD s/p PCI (2023) with stent x 2 DM II & hyperglycemia Hx urethral cancer CKD IIIb Discharge Disposition: Home Discharge Instruct/Medications Diet: Consistent carbohydrate, Cardiac 2g Na,low cholest Diet comment: low potassium Activity: No Restrictions, As Tolerated Follow Up/Referral: pcp 1 week, please ask for follow up BMP to check potassium nephrology as needed Medications: continue home meds Discharge Statement: "Patient was advised to return to the ER or call 911 if any headaches, dizziness, shortness of breath, chest pain, abdominal pain, bleeding, fevers, or worsening of medical condition. Patient was counseled about treatment plan, medications, possible side effects, patientverbalized understanding. All questions were answered to the best of my ability. This discharge took greater then 30 minutes in planning, reviewing documentation, counseling the patient, and discussing with other team members." ASSESSMENT ASSESSMENT Assessment CP- not cardiac, could be neuropathy or from high potassium CHEYENNE PALACIO NP Oct 20, 2024 10:37
[2024-10-20] MEDS: OXYCODONE W/ ACETAMINOPHEN 5/325MG TABLET PO PRN (11:22)
--- NOTE | 2024-10-20 17:10 | DVHINCON2 ---
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, Congestive heart failure, history of laminectomy presented with chief complaints of right arm pain, chest pain and shoulder pain associated with numbness she was also found to have hyperkalemia on admission Past Medical History As documented in HPI Past Surgical History As per HPI Allergies: Coded Allergies: Egg-derived Products (Verified Allergy, Unknown, 10/19/24) Ketorolac Tromethamine (Verified Allergy, Unknown, 03/02/23) Nifedipine (Verified Allergy, Unknown, 03/02/23) Home Meds Reported Medications Oxycodone W/ Acetaminophen (Percocet 5/325MG) 1 Tab Tb, 2 TAB PO Q4HP PRN for PAIN SCALE 7 THRU 10, #60 TAB 10/19/24 Budesonide-Formoterol Fumarate (Budesonide/Formoterol Fum 160-4.5 Mcg/Act) 1 Aer Aer, 1 AER IN DAILY, AER 10/19/24 Carvedilol (Carvedilol) 12.5 Mg Tab, 12.5 MG PO Q12HR for 30 Days, MG 10/19/24 Isosorbide Mononitrate (Isosorbide Mononitrate Er) 30 Mg Tab, 30 MG PO for 30 Days, MG 10/19/24 Clopidogrel Bisulfate (Plavix) 75 Mg Tab, 1 TAB PO DAILY, #90 TAB 1 Refill 10/19/24 Semaglutide (Ozempic) 2 Mg/3 Ml Inj, 2 MG SC QWEEKLY, INJ 10/19/24 Albuterol Sulfate (Albuterol Sulfate Hfa) 108 Mcg/Act Aer, 1 PUFF PO 10/19/24 Glimepiride (Glimepiride) 4 Mg Tab, 1 TAB PO DAILY 10/19/24 Discontinued Reported Medications Amoxicillin Trihydrate (Amoxicillin) 250 Mg Cap, 500 MG PO QID, MG 10/19/24 Sulfamethoxazole W/Trimethopri (Trimethoprim/Sulfamethoxa) 1 Tab Tab, 1 TAB PO BID, #14 TAB 10/19/24 Losartan Potassium (Losartan Potassium) 100 Mg Tab, 100 MG PO DAILY for 30 Days, MG 10/19/24 Carvedilol (Coreg) 6.25 Mg Tab, 2 TAB PO BID, #180 TAB 1 Refill 10/19/24 Current Medications Current Medications Medications (Trade) Dose Ordered Sig/Lavon Route PRN Reason Start Time Stop Time Status Last Admin Oxycodone/ Acetaminophen (Percocet 5/ 325MG Tablet) 2 tab Q4HP PRN PO MODERATE PAIN (4-6 PAIN SCALE) 10/20/24 09:45 10/20/24 19:27 DC 10/20/24 15:55 Family History: Hypertension G8 MOTHER Review of Systems As per HPI H&P Exam Vital Signs/I&O Vital Sign Date Time Temp Pulse Resp B/P (MAP) Pulse Ox O2 Delivery O2 Flow Rate FiO2 10/20/24 19:20 73 18 100 10/20/24 19:14 Room Air* 0 21 10/20/24 17:00 97.8 140/44 (76) 97.8 Intake and Output 10/19/24 10/20/24 19:00 07:00 Intake Total 720 ml 100 ml Balance 720 ml 100 ml Intake Oral 720 ml 100 ml # Voids 5 5 # Bowel Movements 1 Labs/Diagnostic Data Labs/Diagnostic Data Laboratory Tests Test 10/20/24 09:24 10/20/24 05:47 10/19/24 20:58 10/19/24 17:44 Range/Units POC Glucose 170 H 216 H 70-106 mg/dl White Blood Count 5.7 4.4-10.8 10^3/uL Red Blood Count 3.73 L 4.0-5.20 10^6/uL Hemoglobin 11.6 L 12.2-16.2 g/dL Hematocrit 33.7 L 36.0-46.0 % Mean Corpuscular Volume 90.5 80.0-100.0 fL Mean Corpuscular Hemoglobin 31.0 28.0-32.0 pg Mean Corpuscular Hemoglobin Concent 34.3 32.0-36.0 g/dL Red Cell Distribution Width 16.2 H 11.8-14.3 % Platelet Count 174 140-450 10^3/uL Mean Platelet Volume 7.8 6.9-10.8 fL Neutrophils (%) (Auto) 52.1 37.0-80.0 % Lymphocytes (%) (Auto) 37.1 10.0-50.0 % Monocytes (%) (Auto) 8.4 0.0-12.0 % Eosinophils (%) (Auto) 1.6 0.0-7.0 % Basophils (%) (Auto) 0.8 0.0-2.0 % Neutrophils # (Auto) 3.0 1.6-8.6 10 ^3/uL Lymphocytes # (Auto) 2.1 0.4-5.4 10 ^3/uL Monocytes # (Auto) 0.5 0-1.3 10 ^3/uL Eosinophils # (Auto) 0.1 0-0.8 10 ^3/uL Basophils # (Auto) 0 0-0.2 10 ^3/uL Nucleated Red Blood Cells 0.1 % Sodium Level 138 136-145 mmol/L Potassium Level 4.6 5.9 *H 3.5-5.1 mmol/L Chloride Level 105 98-107 mmol/L Carbon Dioxide Level 27 20-31 mmol/L Anion Gap 6 5-15 Blood Urea Nitrogen 29 H 9-23 mg/dL Creatinine 1.56 H 0.550-1.02 mg/dL Glomerular Filtration Rate Calc 39 >90 mL/min BUN/Creatinine Ratio 18.6 10.0-20.0 Serum Glucose 171 H 74-106 mg/dL Calcium Level 9.9 8.7-10.4 mg/dL Total Bilirubin 0.2 0.2-1.0 mg/dL Aspartate Amino Transferase (AST) 15 13-40 U/L Alanine Aminotransferase (ALT) 20 7-40 U/L Alkaline Phosphatase 67 46-116 U/L Total Protein 6.9 5.7-8.2 g/dL Albumin 4.1 3.2-4.8 g/dL Test 10/19/24 10:54 10/19/24 09:06 10/19/24 01:19 10/19/24 00:59 Range/Units Sodium Level 134 L 136-145 mmol/L Potassium Level 5.4 H 3.5-5.1 mmol/L Chloride Level 101 98-107 mmol/L Carbon Dioxide Level 27 20-31 mmol/L Anion Gap 6 5-15 Blood Urea Nitrogen 28 H 9-23 mg/dL Creatinine 1.70 H 0.550-1.02 mg/dL Glomerular Filtration Rate Calc 35 >90 mL/min BUN/Creatinine Ratio 16.5 10.0-20.0 Serum Glucose 242 H 74-106 mg/dL Calcium Level 9.9 8.7-10.4 mg/dL POC Glucose 159 H 183 H 70-106 mg/dl Troponin I High Sensitivity 16 </=34 ng/L Test 10/19/24 00:30 10/18/24 23:00 10/18/24 22:02 Range/Units Urine Color Straw Yellow Urine Clarity Turbid H Clear Urine pH 6.5 5.0-9.0 Urine Specific [place] 1.007 1.001-1.035 Urine Protein 1+ H Negative Urine Ketones Negative Negative Urine Blood 1+ H Negative /uL Urine Nitrite Negative Negative Urine Bilirubin Negative Negative Urine Urobilinogen Normal Negative mg/dL Urine Leukocyte Esterase Trace Negative /uL Urine RBC 1 0 - 4 /hpf Urine Microscopic WBC 11 H 0-5 /HPF Urine Squamous Epithelial Cells Few <5 /hpf Urine Bacteria Few H None Seen /hpf Urine Yeast (Budding) Occasional None Seen /hpf Urine Glucose 4+ H Normal mg/dL Troponin I High Sensitivity 15 16 </=34 ng/L White Blood Count 6.3 4.4-10.8 10^3/uL Red Blood Count 3.77 L 4.0-5.20 10^6/uL Hemoglobin 12.0 L 12.2-16.2 g/dL Hematocrit 34.1 L 36.0-46.0 % Mean Corpuscular Volume 90.5 80.0-100.0 fL Mean Corpuscular Hemoglobin 31.9 28.0-32.0 pg Mean Corpuscular Hemoglobin Concent 35.2 32.0-36.0 g/dL Red Cell Distribution Width 16.4 H 11.8-14.3 % Platelet Count 187 140-450 10^3/uL Mean Platelet Volume 7.4 6.9-10.8 fL Neutrophils (%) (Auto) 54.1 37.0-80.0 % Lymphocytes (%) (Auto) 35.9 10.0-50.0 % Monocytes (%) (Auto) 6.6 0.0-12.0 % Eosinophils (%) (Auto) 2.7 0.0-7.0 % Basophils (%) (Auto) 0.7 0.0-2.0 % Neutrophils # (Auto) 3.4 1.6-8.6 10 ^3/uL Lymphocytes # (Auto) 2.3 0.4-5.4 10 ^3/uL Monocytes # (Auto) 0.4 0-1.3 10 ^3/uL Eosinophils # (Auto) 0.2 0-0.8 10 ^3/uL Basophils # (Auto) 0 0-0.2 10 ^3/uL Nucleated Red Blood Cells 0.1 % Sodium Level 132 L 136-145 mmol/L Potassium Level 5.3 H 3.5-5.1 mmol/L Chloride Level 102 98-107 mmol/L Carbon Dioxide Level 28 20-31 mmol/L Anion Gap 2 L 5-15 Blood Urea Nitrogen 26 H 9-23 mg/dL Creatinine 1.82 H 0.550-1.02 mg/dL Glomerular Filtration Rate Calc 32 >90 mL/min BUN/Creatinine Ratio 14.3 10.0-20.0 Serum Glucose 174 H 74-106 mg/dL Calcium Level 9.5 8.7-10.4 mg/dL Assessment Acute kidney injury likely hemodynamic mediated etiology in the setting of Bactrim and ARB use Hyperkalemia secondary to above Recommendations Agree with holding Bactrim and losartan Once creatinine plateaus resume losartan Can switch Bactrim to other antibiotics if needed Plan discussed with: Patient, Other JACQUE MCKOY MD Oct 20, 2024 17:10
[2024-10-20] MEDS: ALBUTEROL SULF 2.5 MG/0.5ML(0.5%) NEB SOLN NEB PRN (19:14)
== END 2024-10-20 16:55 | disposition home or self-care (01) | DRG 425 ==
LOC: ER 21:43 → OVERFLOW 10-19 00:25 → TELE-EAST 10-19 23:38
PROVIDERS: ADMIT Nurse Practitioner; ATTEND Nurse Practitioner
DX: E87.5 Hyperkalemia (principal); N17.9 Acute kidney failure, unspecified; I13.0 Hypertensive heart and chronic kidney disease with heart failure and stage 1 through stage 4 chronic kidney disease, or unspecified chronic kidney disease; E11.22 Type 2 diabetes mellitus with diabetic chronic kidney disease; I50.22 Chronic systolic (congestive) heart failure; E11.40 Type 2 diabetes mellitus with diabetic neuropathy, unspecified; I25.110 Atherosclerotic heart disease of native coronary artery with unstable angina pectoris; E11.65 Type 2 diabetes mellitus with hyperglycemia; E66.01 Morbid (severe) obesity due to excess calories; E11.51 Type 2 diabetes mellitus with diabetic peripheral angiopathy without gangrene; Z68.36 Body mass index [BMI] 36.0-36.9, adult; I25.2 Old myocardial infarction; Z95.5 Presence of coronary angioplasty implant and graft; Z90.49 Acquired absence of other specified parts of digestive tract; Z88.3 Allergy status to other anti-infective agents; Z91.09 Other allergy status, other than to drugs and biological substances; Z79.84 Long term (current) use of oral hypoglycemic drugs; Z85.59 Personal history of malignant neoplasm of other urinary tract organ; Z91.012 Allergy to eggs; Z79.2 Long term (current) use of antibiotics; Z79.02 Long term (current) use of antithrombotics/antiplatelets; Z79.899 Other long term (current) drug therapy; Z82.49 Family history of ischemic heart disease and other diseases of the circulatory system; N18.32 Chronic kidney disease, stage 3b; M54.10 Radiculopathy, site unspecified
CPT/HCPCS: 36415; 70450; 71045; 80048; 80053; 81001; 82962; 84132; 84484; 85025; 93005; 93306; 94640; 99291; G0378; J1815

== ENCOUNTER 2024-11-23 10:06 | Inpatient (IN) | payer MEDICAID ==
[~2024-11-23] VITALS: Ht 162.6 cm; Wt 102.3 kg
[~2024-11-23 10:06] MED LIST: ALBU108A5 PO; BUDE1AER4 IN; CARV12.544 PO; CLOP75TA28 PO; GLIM4TAB42 PO; ISOS1TAB28 PO; PERCOT PO; SEMA2INJ3 SC
[2024-11-23 10:31] LABS: Basophils # (auto) 0.1 10 ^3/uL (0-0.2); Basophils % (auto) 0.7 % (0.0-2.0); Eosinophils # (auto) 0.1 10 ^3/uL (0-0.8); Eosinophils % (auto) 1.6 % (0.0-7.0); Hematocrit 37.6 % (36.0-46.0); Lymphocytes # (auto) 2.2 10 ^3/uL (0.4-5.4); Lymphocytes % (auto) 25.5 % (10.0-50.0); Mean Corpuscular Hemoglobin 31.1 pg (28.0-32.0); Mean Corpuscular Hgb Conc. 34.7 g/dL (32.0-36.0); Mean Corpuscular Volume 89.8 fL (80.0-100.0); Monocytes # (auto) 0.5 10 ^3/uL (0-1.3); Monocytes % (auto) 5.4 % (0.0-12.0); Neutrophils # (auto) 5.9 10 ^3/uL (1.6-8.6); Neutrophils % (auto) 66.8 % (37.0-80.0); Nucleated Red Blood Cells % 0.1 %; Platelet Count (auto) 192 10^3/uL (140-450); Red Blood Cells 4.18 10^6/uL (4.0-5.20); Red Cell Distribution Width 14.9 % (11.8-14.3); White Blood Cell 8.8 10^3/uL (4.4-10.8)
[2024-11-23 10:40] LABS: Urine Bacteria None Seen /hpf (None Seen)
[2024-11-23 10:43] VITALS: PULSE 97; RESP 16; O2SAT 95
[2024-11-23 10:44] LABS: Chloride 101 mmol/L (98-107); Potassium 4.1 mmol/L (3.5-5.1)
[2024-11-23 10:45] LABS: Anion Gap 7 (5-15); Calcium 9.7 mg/dL (8.7-10.4); Carbon Dioxide 27 mmol/L (20-31)
[2024-11-23 10:47] LABS: Sodium 135 mmol/L (136-145)
[2024-11-23 10:50] LABS: BUN/Creatinine Ratio 16.8 (10.0-20.0); Blood Urea Nitrogen 19 mg/dL (9-23)
[2024-11-23 10:51] LABS: Glucose 293 mg/dL (74-106)
[2024-11-23] MEDS: ONDANSETRON HCL 4 MG/2 ML VIAL IV ONE (10:51)
[2024-11-23] MEDS: MORPHINE SULFATE INJ 2 MG/ml SYRG IV ONE (10:52)
[2024-11-23 11:04] LABS: Urine Blood 2+ /uL (Negative); Urine Clarity Clear (Clear); Urine Color Light-Yellow (Yellow); Urine Protein, UAD 3+ (Negative); Urine Specific Gravity 1.027 (1.001-1.035); Urine Squamous Epithelial Cell FEW /hpf (<5); Urine Urobilinogen Normal (Negative); Urine WBC 4 /HPF (0-5); Urine pH 6.5 (5.0-9.0)
--- NOTE | 2024-11-23 11:50 | ED.PDOC ---
History of Present Illness HPI Comments 55 y/o obese F is [facility] from [facility] ([facility]) ED for c/o chest pain, today. Per EMS report, patient is a transfer from [facility] for higher level of care after, initially, being evaluated at facility for sudden and unprovoked onset of diffused chest-wall pain that radiates to her back, this morning, and found with STEMI. Patient is reported to have an extensive history, which includes: angina, CAD s/p PCI, ureteral cancer, CHF, Cauda equina syndrome s/p posterior fusion of lumbar spine, DM II, HTN, 2x NM s/p PTCA, laminectomy, and cholecystectomy. At time of assessment, patient endorses on still having pain that she describes as pressure-like in quality and rates it an 8/10 in severity after, initially, being a 10/10 prior to ASA, multiple NTG, and morphine administration, earlier. She denies any shortness of breath, left-arm pain, nausea, vomiting, fever, chills, or other associated symptoms or modifiers at this time. Chief Complaint: Chest Pain Time Seen by MD: 10:15 Primary Care Provider: KATERINA Reviewed Notes: Nurses Notes, Analytical Lab Technician Notes, Medications, Allergies Allergies: Coded Allergies: Egg-derived Products (Verified Allergy, Unknown, 10/19/24) Ketorolac Tromethamine (Verified Allergy, Unknown, 03/02/23) Nifedipine (Verified Allergy, Unknown, 03/02/23) Home Meds Reported Medications Oxycodone W/ Acetaminophen (Percocet 5/325MG) 1 Tab Tb, 2 TAB PO Q4HP PRN for PAIN SCALE 7 THRU 10, #60 TAB 10/19/24 Budesonide-Formoterol Fumarate (Budesonide/Formoterol Fum 160-4.5 Mcg/Act) 1 Aer Aer, 1 AER IN DAILY, AER 10/19/24 Carvedilol (Carvedilol) 12.5 Mg Tab, 12.5 MG PO Q12HR for 30 Days, MG 10/19/24 Isosorbide Mononitrate (Isosorbide Mononitrate Er) 30 Mg Tab, 30 MG PO for 30 Days, MG 10/19/24 Clopidogrel Bisulfate (Plavix) 75 Mg Tab, 1 TAB PO DAILY, #90 TAB 1 Refill 10/19/24 Semaglutide (Ozempic) 2 Mg/3 Ml Inj, 2 MG SC QWEEKLY, INJ 10/19/24 Albuterol Sulfate (Albuterol Sulfate Hfa) 108 Mcg/Act Aer, 1 PUFF PO 10/19/24 Glimepiride (Glimepiride) 4 Mg Tab, 1 TAB PO DAILY 10/19/24 Information Source: Patient, Transfer Record, Emergency Med Personnel, [facility] Medical Record Mode of Arrival: EMS Severity: Moderate Timing: Hours Duration: Since onset Prehospital treatment: 12 Lead EKG, [address] [facility] Past Medical History PAST MEDICAL HISTORY: Angina, CAD (s/p PCI), Cancer (urethral cancer ), CHF, CKF, DM (type II ), HTN, NM (2x) Past Medical History (Other): Cauda equina syndrome, morbid obesity Surgical History: Cholecystectomy, , PTCA, Tonsillectomy Surgical History (Other): laminectomy, posterior fusion of lumbar spine, right pelvic fracture repair, PCI [employer]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: 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 all [employer] GENERAL MANAGER Hx Family History Family History: Reviewed,noncontributory to illness Social History Smoker: Non-Smoker Alcohol: Denies ETOH Use Drugs: Denies Drug Use Lives In: Home All Other Systems: Reviewed and Negative (Comprehensive systems review obtained and negative except for what is stated in the HPI.) Physical Exam General Appearance: Moderate Distress HEENT: Normal ENT Inspection, Pharynx Normal, TMs Normal Neck: Full Range of Motion, Non-Tender, Normal, Normal Inspection Respiratory: Chest Non-Tender, Lungs Clear, No Accessory Muscle Use, No Respiratory Distress, Normal Breath Sounds Cardiovascular: No Edema, No JVD, No Murmur, No Gallop, Normal Peripheral Pulses, Regular Rate/Rhythm Breast Exam: Deferred Gastrointestinal: No Organomegaly, Non Tender, No Pulsatile Mass, Normal Bowel Sounds, Soft Genitalia: Deferred Pelvic: Deferred Rectal: Deferred Extremities: No calf tenderness, Normal capillary refill, Normal inspection, Normal range of motion, Non-tender, No pedal edema Musculoskeletal : Apperance: Normal Neurologic: Alert, No Motor Deficits, No Sensory Deficits Cerebellar Function: NOT DONE Reflexes: NOT DONE Skin: Dry, Normal Color, Warm Peripheral Pulses: 3+ Radial (R), 3+ Radial (L) Lymphatic: No Adenopathy Was a procedure done? Was a procedure done?: No EKG EKG #1: Pulse Rate (adult): 85 [place]: Normal Cardiac Rhythm: NSR Block: None Hypertrophy: None ST: New, Ant (septal ) EKG #2: Pulse Rate (adult): 85 [place]: Normal Cardiac Rhythm: NSR Block: None Hypertrophy: None ST: New, Ant (septal ) Differential Dx Considerations may include: STEMI, ACS, angina, among others X-Ray, Labs, Meds, VS Vital Signs Date Time Temp Pulse Resp B/P (MAP) Pulse Ox O2 Delivery O2 Flow Rate FiO2 11/23/24 11:50 85 11/23/24 11:22 92 16 156/79 11/23/24 10:55 85 11/23/24 10:52 97 16 166/65 11/23/24 10:43 97 16 95 Room Air* 0 21 11/23/24 10:40 97.8 97 16 166/65 (98) 95 97.8 11/23/24 10:20 98.7 90 18 101/55 (70) 94 98.7 11/23/24 10:11 85 Lab Test 11/23/24 11:19 11/23/24 10:21 11/23/24 10:20 Range/Units Troponin I High Sensitivity 30 28 </=34 ng/L Urine Color Light-yellow Yellow Urine Clarity Clear Clear Urine pH 6.5 5.0-9.0 Urine Specific [place] 1.027 1.001-1.035 Urine Protein 3+ H Negative Urine Ketones Negative Negative Urine Blood 2+ H Negative /uL Urine Nitrite Negative Negative Urine Bilirubin Negative Negative Urine Urobilinogen Normal Negative mg/dL Urine Leukocyte Esterase Negative Negative /uL Urine RBC 8 0 - 4 /hpf Urine Microscopic WBC 4 0-5 /HPF Urine Squamous Epithelial Cells Few <5 /hpf Urine Bacteria None seen None Seen /hpf Urine Glucose 4+ H Normal mg/dL White Blood Count 8.8 4.4-10.8 10^3/uL Red Blood Count 4.18 4.0-5.20 10^6/uL Hemoglobin 13.0 12.2-16.2 g/dL Hematocrit 37.6 36.0-46.0 % Mean Corpuscular Volume 89.8 80.0-100.0 fL Mean Corpuscular Hemoglobin 31.1 28.0-32.0 pg Mean Corpuscular Hemoglobin Concent 34.7 32.0-36.0 g/dL Red Cell Distribution Width 14.9 H 11.8-14.3 % Platelet Count 192 140-450 10^3/uL Mean Platelet Volume 7.3 6.9-10.8 fL Neutrophils (%) (Auto) 66.8 37.0-80.0 % Lymphocytes (%) (Auto) 25.5 10.0-50.0 % Monocytes (%) (Auto) 5.4 0.0-12.0 % Eosinophils (%) (Auto) 1.6 0.0-7.0 % Basophils (%) (Auto) 0.7 0.0-2.0 % Neutrophils # (Auto) 5.9 1.6-8.6 10 ^3/uL Lymphocytes # (Auto) 2.2 0.4-5.4 10 ^3/uL Monocytes # (Auto) 0.5 0-1.3 10 ^3/uL Eosinophils # (Auto) 0.1 0-0.8 10 ^3/uL Basophils # (Auto) 0.1 0-0.2 10 ^3/uL Nucleated Red Blood Cells 0.1 % Sodium Level 135 L 136-145 mmol/L Potassium Level 4.1 3.5-5.1 mmol/L Chloride Level 101 98-107 mmol/L Carbon Dioxide Level 27 20-31 mmol/L Anion Gap 7 5-15 Blood Urea Nitrogen 19 9-23 mg/dL Creatinine 1.13 H 0.550-1.02 mg/dL Glomerular Filtration Rate Calc 57 >90 mL/min BUN/Creatinine Ratio 16.8 10.0-20.0 Serum Glucose 293 H 74-106 mg/dL Calcium Level 9.7 8.7-10.4 mg/dL Current Medications Medications (Trade) Dose Ordered Sig/Lavon Route Start Time Stop Time Status Last Admin Morphine Sulfate 2 mg ONCE ONCE IV 11/23/24 10:45 11/23/24 10:46 DC 11/23/24 10:52 Ondansetron HCl (Zofran) 4 mg ONCE ONCE IV 11/23/24 10:45 11/23/24 10:46 DC 11/23/24 10:51 Patient alert. Came in from [facility] for possible NSTEMI. Vitals stable. Answering all questions. Blood sugar elevated. Establish intravenous access. Was given morphine. Was given Zofran. She was given aspirin nitro. Continues to have chest pain. EKG reviewed does show changes. Contacted cardiology. She continues to have chest pain. Was given Lovenox. Has risk factors for coronary artery disease. Reviewed her [place] visit. Explained to the patient. Continue cardiac monitoring. Time of 1ST Reevaluation: 10:45 Reevaluation 1ST: Unchanged Patient Education/Counseling: Diagnosis, Treatment Family Education/Counseling: No Family Present Additional Information Previous medical encounters reviewed: October 19, 2024 encounter for unstable angina; September 17, 2024 encounter for chest pain; September 01, 2024 encounter for acute chest pain The following tests were ordered, and results were reviewed by me: EKG, troponin, BMP, UA, CBC Additional Information was gathered from interviewing the following independent historians: transferring facility provider, EMS I reviewed and agreed with the following test results read by other providers: n/a I discussed treatment and results with medical personnel and: Patient Departure 1 Departure Time of Disposition: 12:27 Impression: Primary Impression: NSTEMI (non-ST elevated myocardial infarction) Additional Impressions: Hypertensive emergency Uncontrolled diabetes mellitus Qualified Codes: E13.65 - Other specified diabetes mellitus with hyperglycemia Disposition: ADMITTED INPATIENT Admit to: Med Surg Condition: Guarded Critical Care Note Critical Care Time?: Yes (90 min-critical care time only) Stability Stability form required: No Heart Score Heart Score: Heart Score Response (Comments) Value History Highly Suspicious [address]-Deviation 2 Age 45-64 1 Risk Factors >3 or Hx ASHD 2 Troponin Normal limit 0 Total 7 I personally scribed for KIRSTEN BROWN MD ([email or web address]) on 11/23/24 at 11:50. Electronically submitted by Rudy Massey [email or web address]). KIRSTEN BROWN MD Nov 23, 2024 11:50
[2024-11-23] MEDS: ENOXAPARIN SOD 100 MG/1 ML SYRINGE SC ONE ×2 (12:47→22:00)
[2024-11-23] MEDS ORDERED: NITROGLYCERIN 0.4 MG SL TAB SL PRN (15:00)
[2024-11-23] MEDS ORDERED: DEXTROSE (50%) 50ML SYRG IV PRN (15:00)
[2024-11-23] MEDS ORDERED: ONDANSETRON HCL 4 MG/2 ML VIAL IV PRN (15:00)
[2024-11-23] MEDS ORDERED: ACETAMINOPHEN 325 MG TAB PO PRN (15:00)
--- NOTE | 2024-11-23 15:03 | DVHHP2 ---
Admitting Diagnosis: Chest pain History of Present Illness 55 yo female patient with hx of angina, CAD, ureteral cancer, DM II, HTN, [place] x 2, and CHF c/o pressure like chest pain and presents from another facility after being found to be a STEMI. While in the emergency department the patient was evaluated by the provider, As per provider: Labs, vital signs, and imagining monitored. Patient will be admitted for further evaluation and treatment. I discussed admission with the patient/family and is in agreement to treatment plan. Patient Family History: Hypertension G8 MOTHER Allergies: Coded Allergies: Egg-derived Products (Verified Allergy, Unknown, 10/19/24) Ketorolac Tromethamine (Verified Allergy, Unknown, 03/02/23) Nifedipine (Verified Allergy, Unknown, 03/02/23) Home Meds Reported Medications Oxycodone W/ Acetaminophen (Percocet 5/325MG) 1 Tab Tb, 2 TAB PO Q4HP PRN for PAIN SCALE 7 THRU 10, #60 TAB 10/19/24 Budesonide-Formoterol Fumarate (Budesonide/Formoterol Fum 160-4.5 Mcg/Act) 1 Aer Aer, 1 AER IN DAILY, AER 10/19/24 Carvedilol (Carvedilol) 12.5 Mg Tab, 12.5 MG PO Q12HR for 30 Days, MG 10/19/24 Isosorbide Mononitrate (Isosorbide Mononitrate Er) 30 Mg Tab, 30 MG PO for 30 Days, MG 10/19/24 Clopidogrel Bisulfate (Plavix) 75 Mg Tab, 1 TAB PO DAILY, #90 TAB 1 Refill 10/19/24 Semaglutide (Ozempic) 2 Mg/3 Ml Inj, 2 MG SC QWEEKLY, INJ 10/19/24 Albuterol Sulfate (Albuterol Sulfate Hfa) 108 Mcg/Act Aer, 1 PUFF PO 10/19/24 Glimepiride (Glimepiride) 4 Mg Tab, 1 TAB PO DAILY 10/19/24 Current Medications Current Medications Medications (Trade) Dose Ordered Sig/Lavon Route PRN Reason Start Time Stop Time Status Last Admin Enoxaparin Sodium (Lovenox) 40 mg DAILY SC 11/24/24 10:00 Carvedilol (Coreg Tablet) 12.5 mg Q12HR PO 11/23/24 22:00 11/23/24 16:25 DC Clopidogrel Bisulfate (Plavix) 75 mg DAILY PO 11/24/24 10:00 Patient Own Medication 1 tab DAILY PO 11/24/24 10:00 Review of Systems Constitutional: denies chills, denies fever, denies malaise Eyes: denies eye pain, denies vision change ENT: denies ear pain, denies headache, denies nasal congestion, denies painful swallowing, denies voice change Cardiovascular: denies chest pain, denies edema, denies orthopnea, denies palpitations, denies paroxysmal nocturnal dyspnea Respiratory: denies cough, denies shortness of breath Gastrointestinal: denies constipation, denies diarrhea, denies nausea, denies vomiting Genitourinary: denies dysuria, denies frequent urination, denies urethral discharge Musculoskeletal: denies back pain, denies joint pain, denies muscle pain Skin: denies bruising, denies itching, denies rash Neurological: denies focal weakness, denies headache, denies sensory changes Psychiatric: denies anxiety, denies depression Endocrine: denies polydipsia, denies polyuria Hematologic/Lymphatic: denies easy bleeding, denies easy bruising, denies enlarged lymph nodes Allergic/Immunologic: denies allergy, denies hives Vital Signs Vital Signs Date Time Temp Pulse Resp B/P (MAP) Pulse Ox O2 Delivery O2 Flow Rate FiO2 11/24/24 18:29 153/71 11/24/24 17:45 85 18 11/24/24 16:52 98.0 100 98.0 11/24/24 08:00 Room Air* 0 21 Physical Exam General Appearance: alert, no distress HEENT: EOMI, PERRLA, normal external inspect of ears, no icterus, no nasal drainage Neck: no carotid bruit, no jugular venous distention (JVD), no lymphadenopathy Chest: normal thorax Respiratory: clear to auscultation, normal air movement Cardiovascular: regular rate and rhythm, no diastolic murmur, no jugular venous distention (JVD), no rub, no systolic murmur Abdominal: soft, no hepatomegaly, no mass, no splenomegaly, no tenderness Genitourinary: grossly normal external Musculoskeletal: no joint tenderness, no swelling Extremities: normal pulses, no calf tenderness, no clubbing, no cyanosis, no edema Skin: no bruising, no jaundice, no rash Neurological: alert, No focal deficit Results Labs Test 11/24/24 18:15 11/24/24 04:30 11/24/24 01:40 11/23/24 21:14 Range/Units POC Glucose 273 H 70-106 mg/dl White Blood Count 6.6 4.4-10.8 10^3/uL Red Blood Count 3.62 L 4.0-5.20 10^6/uL Hemoglobin 11.3 L 12.2-16.2 g/dL Hematocrit 32.8 #L 36.0-46.0 % Mean Corpuscular Volume 90.6 80.0-100.0 fL Mean Corpuscular Hemoglobin 31.2 28.0-32.0 pg Mean Corpuscular Hemoglobin Concent 34.5 32.0-36.0 g/dL Red Cell Distribution Width 15.0 H 11.8-14.3 % Platelet Count 179 140-450 10^3/uL Mean Platelet Volume 8.0 6.9-10.8 fL Neutrophils (%) (Auto) 51.4 37.0-80.0 % Lymphocytes (%) (Auto) 37.3 10.0-50.0 % Monocytes (%) (Auto) 7.8 0.0-12.0 % Eosinophils (%) (Auto) 2.2 0.0-7.0 % Basophils (%) (Auto) 1.3 0.0-2.0 % Neutrophils # (Auto) 3.4 1.6-8.6 10 ^3/uL Lymphocytes # (Auto) 2.5 0.4-5.4 10 ^3/uL Monocytes # (Auto) 0.5 0-1.3 10 ^3/uL Eosinophils # (Auto) 0.1 0-0.8 10 ^3/uL Basophils # (Auto) 0.1 0-0.2 10 ^3/uL Nucleated Red Blood Cells 0.4 % Sodium Level 134 L 136-145 mmol/L Potassium Level 4.5 3.5-5.1 mmol/L Chloride Level 102 98-107 mmol/L Carbon Dioxide Level 26 20-31 mmol/L Anion Gap 6 5-15 Blood Urea Nitrogen 20 9-23 mg/dL Creatinine 1.21 H 0.550-1.02 mg/dL Glomerular Filtration Rate Calc 53 >90 mL/min BUN/Creatinine Ratio 16.5 10.0-20.0 Serum Glucose 196 H 74-106 mg/dL Calcium Level 9.1 8.7-10.4 mg/dL Total Bilirubin 0.2 0.2-1.0 mg/dL Aspartate Amino Transferase (AST) 27 13-40 U/L Alanine Aminotransferase (ALT) 18 7-40 U/L Alkaline Phosphatase 59 46-116 U/L Total Protein 6.1 5.7-8.2 g/dL Albumin 3.4 3.2-4.8 g/dL Prothrombin Time 10.8 9.3-11.8 sec Prothrombin Time INR 1.02 0.9-1.15 Activated Partial Thromboplast Time 29.1 24.5-34.5 SEC D-Dimer, Quantitative 0.60 H 0.0-0.49 mg/L FEU Troponin I High Sensitivity 33 </=34 ng/L Test 11/23/24 10:21 11/23/24 10:20 Range/Units Urine Color Light-yellow Yellow Urine Clarity Clear Clear Urine pH 6.5 5.0-9.0 Urine Specific [place] 1.027 1.001-1.035 Urine Protein 3+ H Negative Urine Ketones Negative Negative Urine Blood 2+ H Negative /uL Urine Nitrite Negative Negative Urine Bilirubin Negative Negative Urine Urobilinogen Normal Negative mg/dL Urine Leukocyte Esterase Negative Negative /uL Urine RBC 8 0 - 4 /hpf Urine Microscopic WBC 4 0-5 /HPF Urine Squamous Epithelial Cells Few <5 /hpf Urine Bacteria None seen None Seen /hpf Urine Glucose 4+ H Normal mg/dL B-Type Natriuretic Peptide 134.30 0-100 pg/mL Plan 1. Unstable angina Monitor EKG, cardiology consult, trend troponin 2. DM II & hyperglycemia Monitor, insulin ss, Hgb A1C, lipid panel 3. Morbid Obesity Monitor, PPI, DVT prophylaxis 4. Uncontrolled HTN Monitor, antihypertensives Plan discussed with: Patient, Other CHEYENNE PALACIO NP Nov 23, 2024 15:03
[2024-11-23] MEDS: PANTOPRAZOLE 40 MG/10 ML VIAL INJ IV SCH (15:40)
[2024-11-23] MEDS: MAALOX PLUS or MAALOX 30 ML PO ONE (15:40)
[2024-11-23] MEDS: MORPHINE SULFATE INJ 2 MG/ml SYRG IV PRN ×2 (15:41→20:53)
[2024-11-23] MEDS: HYDROcodone-ACET 5/325MG TAB PO PRN (16:17)
[2024-11-23] MEDS: ISOSORBIDE MONONITRATE ER 60 MG TAB PO SCH (16:37)
[2024-11-23] MEDS: hydrALAZINE HCL 20 MG/ML VL IV PRN (16:43)
[2024-11-23] MEDS: LOSARTAN POTASSIUM 50 MG TAB PO SCH (16:44)
[2024-11-23] MEDS: CARVEDILOL 12.5 MG TAB PO SCH (16:44)
[2024-11-23] MEDS: HYDROMORPHONE HCL 1 MG/ML INJ IV ONE (17:55)
--- NOTE | 2024-11-23 18:25 | DVHSR ---
APPROVED REPORT EXAM: Two-dimensional and M-mode echocardiogram with Doppler and color Doppler. Blood Pressure: 166/75 mmHg INDICATION Chest Pain RISK FACTORS Height: 5'4", Weight: 214 DIMENSIONS LVDd6.2 (3.8-5.7cm)LA (2D)4.7 (1.9-4.0cm)Aortic Root3.2 (2.0-3.7cm) LVDs4.9 (2.5-4.0cm)LA (MM) (1.9-4.0cm)Aortic Cusp Exc2.0 (1.5-2.0cm) EF (%) 41.0 (55-70%)Rt. Atrium3.7 (1.9-4.0cm)Asc. Aorta4.0 cm IVSd1.0 (0.7-1.1cm)RV (D)3.4 (1.8-2.4cm) PWd1.3 (0.7-1.1cm) Mitral Valve MitralMitral Stenosis E wave0.60m/sMV Mean GR.mmHg A wave0.98m/sMV Peak GR.mmHg E/A ratio0.62D MVAcm2 DECEL [id number] 1/2 [place] Aortic Valve Aortic ValveAortic Stenosis V10.84m/[place] Mean GR.4mmHg V21.23m/[place] Peak GR.6mmHg LVOT Diameter2.5 (1.8-2.4cm)Doppler AVA3.35cm2 Pulmonic Valve V20.80m/s Tricuspid Valve TR Velocity2.02m/s [id number] Conclusion Left ventricle: Left ventricle is normal-sized. LVEF was around 45%. Mild diffuse hypokinesis of l eft ventricle was seen. Mild concentric left ventricular hypertrophy was seen. Right ventricle was normal-sized with normal systolic function. Both atria were normal-sized. Aortic valve was trileaflet. There was no aortic insufficiency/stenosis. There was mild mitral regu rgitation. There was trace tricuspid regurgitation and pulmonary valve insufficiency. Right ventricular systolic pressure was assessed at 24 mm Hg (normal level). IVC was normal-sized wi th reduced respiratory variation. There was no pericardial effusion.
[2024-11-23] MEDS: ACCU-CHEK COMFORT CURVE STRIP VI SCH (18:27)
[2024-11-23] MEDS: InsuLIN REG 1unit/0.01ml Soln (100units/ml) SC SCH (18:32)
--- NOTE | 2024-11-23 18:42 | ECG ---
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
--- NOTE | 2024-11-23 18:42 | ECG ---
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
--- NOTE | 2024-11-23 19:35 | DVHINCON2 ---
Date of service: Nov 23, 2024 History of Present Illness HPI Patient is a 55-year-old female who was transferred from [facility] for chest pain. She originally presented to [facility] for chest pain which started at midnight. She mentions that it was severe discomfort like heaviness sitting on the chest and was comparable to the time that she ended up having stents in the heart. It seems that the patient had misplaced aspirin for few days and was not taking it. It seems that the patient was compliant with Plavix. Cardiology is involved for cardiac aspects of care. Patient is known to our practice from before. It is of note that serial troponin (high sensitive) has been negative. EKGs revealed old myocardial infarction and nonspecific ST-T changes (secondary to LVH). Home Meds Reported Medications Oxycodone W/ Acetaminophen (Percocet 5/325MG) 1 Tab Tb, 2 TAB PO Q4HP PRN for PAIN SCALE 7 THRU 10, #60 TAB 10/19/24 Budesonide-Formoterol Fumarate (Budesonide/Formoterol Fum 160-4.5 Mcg/Act) 1 Aer Aer, 1 AER IN DAILY, AER 10/19/24 Carvedilol (Carvedilol) 12.5 Mg Tab, 12.5 MG PO Q12HR for 30 Days, MG 10/19/24 Isosorbide Mononitrate (Isosorbide Mononitrate Er) 30 Mg Tab, 30 MG PO for 30 Days, MG 10/19/24 Clopidogrel Bisulfate (Plavix) 75 Mg Tab, 1 TAB PO DAILY, #90 TAB 1 Refill 10/19/24 Semaglutide (Ozempic) 2 Mg/3 Ml Inj, 2 MG SC QWEEKLY, INJ 10/19/24 Albuterol Sulfate (Albuterol Sulfate Hfa) 108 Mcg/Act Aer, 1 PUFF PO 10/19/24 Glimepiride (Glimepiride) 4 Mg Tab, 1 TAB PO DAILY 10/19/24 Past Medical History Others Past medical history includes obesity, CKD, diabetes mellitus, hypertension, coronary artery disease and status post PCI (late 2023), systolic heart failure, has had cholecystectomy, urethral cancer, status post tonsillectomy and history of cauda equina syndrome. She has had laminectomy before. Patient Family History: Hypertension G8 MOTHER Smoker: No Hx (Negative) Alocohol: None Drugs: None Lives with: With family Review of Systems All Other Systems Fourteen point review of system was performed. Relevant findings as per above and as per HPI. Otherwise negative. H&P Exam Vital Signs Vital Signs Date Time Temp Pulse Resp B/P (MAP) Pulse Ox O2 Delivery O2 Flow Rate FiO2 11/23/24 18:40 93 11 133/40 (71) 96 11/23/24 10:43 Room Air* 0 21 11/23/24 10:40 97.8 97.8 General Appeara: Well developed Head Exam: Normal inspection Eye Exam: bilateral eye PERRL Mouth: Normal Inspection Pulmonary/Respiratory: Lungs clear Cardiovascular/Chest: Normal inspection, Regular rate Peripheral Pulses: 2+ carotid (R), 2+ carotid (L), 2+ femoral (R), 2+ femoral (L), 2+ dorsalis pedis (R), 2+ dorsalis pedis (L), 2+ Radial (R), 2+ Radial (L) Abdominal Exam: Normal bowel sounds, Soft, No hepatospenomegaly Neuro/Mental St: Alert, Oriented Appearance: Appropriate appearance Eye contact/ Speech: Cooperative Labs/Xrays Labs Test 11/23/24 18:26 11/23/24 17:57 11/23/24 10:21 11/23/24 10:20 Range/Units POC Glucose 213 H 70-106 mg/dl Troponin I High Sensitivity 32 </=34 ng/L Urine Color Light-yellow Yellow Urine Clarity Clear Clear Urine pH 6.5 5.0-9.0 Urine Specific [place] 1.027 1.001-1.035 Urine Protein 3+ H Negative Urine Ketones Negative Negative Urine Blood 2+ H Negative /uL Urine Nitrite Negative Negative Urine Bilirubin Negative Negative Urine Urobilinogen Normal Negative mg/dL Urine Leukocyte Esterase Negative Negative /uL Urine RBC 8 0 - 4 /hpf Urine Microscopic WBC 4 0-5 /HPF Urine Squamous Epithelial Cells Few <5 /hpf Urine Bacteria None seen None Seen /hpf Urine Glucose 4+ H Normal mg/dL White Blood Count 8.8 4.4-10.8 10^3/uL Red Blood Count 4.18 4.0-5.20 10^6/uL Hemoglobin 13.0 12.2-16.2 g/dL Hematocrit 37.6 36.0-46.0 % Mean Corpuscular Volume 89.8 80.0-100.0 fL Mean Corpuscular Hemoglobin 31.1 28.0-32.0 pg Mean Corpuscular Hemoglobin Concent 34.7 32.0-36.0 g/dL Red Cell Distribution Width 14.9 H 11.8-14.3 % Platelet Count 192 140-450 10^3/uL Mean Platelet Volume 7.3 6.9-10.8 fL Neutrophils (%) (Auto) 66.8 37.0-80.0 % Lymphocytes (%) (Auto) 25.5 10.0-50.0 % Monocytes (%) (Auto) 5.4 0.0-12.0 % Eosinophils (%) (Auto) 1.6 0.0-7.0 % Basophils (%) (Auto) 0.7 0.0-2.0 % Neutrophils # (Auto) 5.9 1.6-8.6 10 ^3/uL Lymphocytes # (Auto) 2.2 0.4-5.4 10 ^3/uL Monocytes # (Auto) 0.5 0-1.3 10 ^3/uL Eosinophils # (Auto) 0.1 0-0.8 10 ^3/uL Basophils # (Auto) 0.1 0-0.2 10 ^3/uL Nucleated Red Blood Cells 0.1 % Sodium Level 135 L 136-145 mmol/L Potassium Level 4.1 3.5-5.1 mmol/L Chloride Level 101 98-107 mmol/L Carbon Dioxide Level 27 20-31 mmol/L Anion Gap 7 5-15 Blood Urea Nitrogen 19 9-23 mg/dL Creatinine 1.13 H 0.550-1.02 mg/dL Glomerular Filtration Rate Calc 57 >90 mL/min BUN/Creatinine Ratio 16.8 10.0-20.0 Serum Glucose 293 H 74-106 mg/dL Calcium Level 9.7 8.7-10.4 mg/dL Assessment/Plan Plan Patient is a 55-year-old female who was transferred from [facility] for chest pain. She originally presented to [facility] for chest pain which started at midnight. She mentions that it was severe discomfort like heaviness sitting on the chest and was comparable to the time that she ended up having stents in the heart. She had multiple stents in [facility] in late 2023. It seems that the patient had misplaced aspirin for few days and was not taking it. It seems that the patient was compliant with Plavix. Cardiology is involved for cardiac aspects of care. Patient is known to our practice from before. It is of note that serial troponin (high sensitive) has been negative. EKGs revealed old myocardial infarction and nonspecific ST-T changes (secondary to LVH). No JVD. [place] and moist mucosa. No carotid bruit. Not using accessory muscles of breathing. Lungs are clear to auscultation. Cardiac: Regular, no thrill/gallop. Abdomen is soft. Bowel sounds positive. No hepatomegaly. There is no peripheral edema. There is tenderness today left shoulder. Past medical history includes obesity, CKD, diabetes mellitus, hypertension, coronary artery disease and status post PCI (late 2023), systolic heart failure, has had cholecystectomy, urethral cancer, status post tonsillectomy and history of cauda equina syndrome. She has had laminectomy before. Echocardiogram of February 23, 2024 (performed in the office) revealed ejection fraction of 30-35%, impaired relaxation of left ventricle, moderate left atrial enlargement, mild right atrial enlargement, mild TR/MR, anteroseptal hypokinesia and right ventricular systolic pressure of 41 mm Hg Echocardiogram of October 19, 2024 had reported ejection fraction of 45-50%, mild right ventricular enlargement with could systolic function of the right side, mild biatrial enlargement, trace MR/TR and right ventricular systolic pressure of 34 mm Hg Hemoglobin: 13.0 WBC: 8.8 Creatinine: 1.13 Potassium: 4.1 Troponin (high sensitive): 28 - 30 - 30 EKG revealed sinus rhythm, LVH with its secondary changes, old inferior [place] and poor R-wave progression. Tele reveals sinus rhythm Echocardiogram revealed: Left ventricle: Left ventricle is normal-sized. LVEF was around 45%. Mild diffuse hypokinesis of left ventricle was seen. Mild co ncentric left ventricular hypertrophy was seen. Right ventricle was normal- sized with normal systolic function. Both atria were normal-sized. Aortic valve was trileaflet. There was no aortic insufficiency/stenosis. There was mild mitral regurgitation. There was trace tricuspid regurgitation and pulmonary valve insufficiency. Right ventricular systolic pressure was assessed at 24 mm Hg (normal level). IVC was normal-sized with reduced respiratory variation. There was no pericardial effusion. Patient is a 55-year-old female who presented with chest discomfort which woke her up. Reportedly, the pain was comparable to the time that she had PCI. Presentation questions unstable angina. She did have few days of missing aspirin which could have contributed to the clinical picture. She has presented with chest discomfort repeatedly. Chest pain Unstable angina Coronary artery disease, status post PCI Congestive heart failure, preserved EF CKD Diabetes mellitus Hypertension Cardiac suggestive for management: Manage on telemetry Follow up electrolytes and kidney function tests and correct abnormalities Lovenox, therapeutic dose for now Continue aspirin/Plavix Request for BNP Request for chest x-ray Request for D-dimer and if abnormal, request for CT angio of the lungs If above is nonrevealing, suggestion is to proceed with cardiac catheterization for further evaluation of unstable angina and repeated chest pains (tentatively tomorrow). Thank you for consultation Further evaluation and management depends on the above and clinical course A total of 75 minutes was spent reviewing the patient record, examining the patient, making a diagnostic and therapeutic plan, discussing this plan with medical personnel, following up on diagnostic studies and following the patient for clinical stability excluding any and all procedures. At least 50% of this time was spent in direct, [id number] contact. Thank you for allowing me to participate in this patient's care. Further recommendations will depend on patient's clinical course. Please do not hesitate to contact me if you have any questions or concerns. This medical document was created using electronic medical record system with [employer] computerized dictation system. Although this document has been carefully reviewed, there may still be some phonetic and typographical errors. These areas are purely typographical due to the imperfection of the software programs, and do not reflect any compromise in the patient's medical care. Plan discussed with: Patient, Other (nurse) TALYA MEDELLIN MD Nov 23, 2024 19:35
--- NOTE | 2024-11-23 20:02 | DVH ---
CHEST RADIOGRAPH Indication: CHEST PAIN Technique: Frontal and lateral view of the chest was obtained Comparison: XY CHEST TWO VIEWS ROUTINE on DOS: 10/18/24 FINDINGS: Lines and Tubes: None Lungs: Clear Pleura: No effusion. No pneumothorax. Cardiomediastinal contours: Unremarkable Bones: Unremarkable IMPRESSION: No abnormality demonstrated.
[2024-11-23 21:00] VITALS: PULSE 74; RESP 18; O2SAT 95
[2024-11-23] MEDS ORDERED: CARVEDILOL 12.5 MG TAB PO SCH (22:00)
[2024-11-23 22:14] VITALS: BP 131/79; PULSE 70; RESP 18; TEMP 98.6; O2SAT 93
[2024-11-23 22:40] VITALS: BP 131/79; PULSE 70; RESP 18; TEMP 98.6; O2SAT 93
[2024-11-23 23:01] VITALS: PULSE 72; RESP 19; O2SAT 92
[2024-11-24] VITALS (15 sets, daily range): BP systolic 121–159; BP diastolic 58–83; PULSE 70–92; RESP 12–20; TEMP 97.9–98.7; O2SAT 92–100
[2024-11-24 02:19] LABS: INR 1.02 (0.9-1.15); Partial Thromboplastin Time 29.1 SEC (24.5-34.5); Prothrombin Time 10.8 sec (9.3-11.8)
[2024-11-24] MEDS: OXYCODONE W/ ACETAMINOPHEN 5/325MG TABLET PO PRN (03:15)
[2024-11-24 05:30] LABS: Basophils # (auto) 0.1 10 ^3/uL (0-0.2); Basophils % (auto) 1.3 % (0.0-2.0); Eosinophils # (auto) 0.1 10 ^3/uL (0-0.8); Eosinophils % (auto) 2.2 % (0.0-7.0); Hematocrit 32.8 % (36.0-46.0); Hemoglobin 11.3 g/dL (12.2-16.2); Lymphocytes # (auto) 2.5 10 ^3/uL (0.4-5.4); Lymphocytes % (auto) 37.3 % (10.0-50.0); Mean Corpuscular Hemoglobin 31.2 pg (28.0-32.0); Mean Corpuscular Hgb Conc. 34.5 g/dL (32.0-36.0); Mean Corpuscular Volume 90.6 fL (80.0-100.0); Monocytes # (auto) 0.5 10 ^3/uL (0-1.3); Monocytes % (auto) 7.8 % (0.0-12.0); Neutrophils # (auto) 3.4 10 ^3/uL (1.6-8.6); Neutrophils % (auto) 51.4 % (37.0-80.0); Nucleated Red Blood Cells % 0.4 %; Platelet Count (auto) 179 10^3/uL (140-450); Red Blood Cells 3.62 10^6/uL (4.0-5.20); White Blood Cell 6.6 10^3/uL (4.4-10.8)
[2024-11-24 05:54] LABS: Alanine Aminotransferase 18 U/L (7-40); Alkaline Phosphatase 59 U/L (46-116); Anion Gap 6 (5-15); Aspartate Aminotransferase 27 U/L (13-40); BUN/Creatinine Ratio 16.5 (10.0-20.0); Blood Urea Nitrogen 20 mg/dL (9-23); Calcium 9.1 mg/dL (8.7-10.4); Carbon Dioxide 26 mmol/L (20-31); Chloride 102 mmol/L (98-107); Potassium 4.5 mmol/L (3.5-5.1); Total Protein 6.1 g/dL (5.7-8.2)
[2024-11-24 05:55] LABS: Albumin 3.4 g/dL (3.2-4.8)
[2024-11-24 06:07] LABS: Bilirubin, Total 0.2 mg/dL (0.2-1.0); Glucose 196 mg/dL (74-106); Sodium 134 mmol/L (136-145)
--- NOTE | 2024-11-24 06:57 | DVHPN2 ---
Progress Note - Dictate Date Seen: Nov 24, 2024 Medical Necessity Reason Pt with a Central, PICC or Fol: No vital signs Vital Sign Date Time Temp Pulse Resp B/P (MAP) Pulse Ox O2 Delivery O2 Flow Rate FiO2 11/24/24 06:26 90 18 119/76 11/24/24 05:00 98.1 96 98.1 11/23/24 23:01 Room Air* 0 21 Total Intake and Output 11/23/24 11/23/24 11/24/24 15:00 23:00 07:00 Intake Total 400 ml Balance 400 ml medications Current Medications Medications Dose Ordered Sig/Lavon Route Start Time Stop Time Status Last Admin Dose Admin Acetaminophen/ Hydrocodone Bitart 1 tab Q4HP PRN PO 11/23/24 15:00 Hold 11/23/24 16:17 1 TAB Temazepam 15 mg QHSP PRN PO 11/23/24 15:00 Ondansetron HCl 4 mg Q4HP PRN IV 11/23/24 15:00 Enoxaparin Sodium 40 mg DAILY SC 11/24/24 10:00 Acetaminophen 650 mg Q6HP PRN PO 11/23/24 15:00 Morphine Sulfate 2 mg Q4HPRN PRN IV 11/23/24 15:00 11/24/24 05:56 2 MG Pantoprazole Sodium 40 mg DAILY IV 11/23/24 15:00 11/23/24 15:40 40 MG Nitroglycerin 0.4 mg Q5MINP PRN SL 11/23/24 15:00 Morphine Sulfate 2 mg Q30M PRN IV 11/23/24 15:00 11/23/24 20:53 2 MG Diagnostic Test (Pha) 1 strip Q6HR 11/23/24 18:00 11/24/24 06:01 1 STRIP Insulin Human Regular Q6HR SC 11/23/24 18:00 11/24/24 06:00 3 UNITS Dextrose 50 ml UD PRN IV 11/23/24 15:00 Clopidogrel Bisulfate 75 mg DAILY PO 11/24/24 10:00 Patient Own Medication 1 tab DAILY PO 11/24/24 10:00 Isosorbide Mononitrate 30 mg DAILY PO 11/23/24 16:15 11/23/24 16:37 30 MG Carvedilol 12.5 mg Q12HR PO 11/23/24 16:30 11/24/24 00:00 12.5 MG Losartan Potassium 50 mg BID PO 11/23/24 16:30 11/23/24 23:59 50 MG Hydralazine HCl 10 mg Q6HP PRN IV 11/23/24 16:30 11/23/24 16:43 10 MG Oxycodone/ Acetaminophen 2 tab Q6HP PRN PO 11/23/24 17:45 11/24/24 03:15 2 TAB laboratory and microbiology Laboratory Tests 11/24/24 04:30 Test 11/24/24 04:30 Range/Units Serum Glucose 196 H 74-106 mg/dL Assessment/Plan Patient is a 55-year-old female who was transferred from [facility] for chest pain. She originally presented to [facility] for chest pain which started at midnight. She mentions that it was severe discomfort like heaviness sitting on the chest and was comparable to the time that she ended up having stents in the heart. She had multiple stents in [facility] in late 2023. It seems that the patient had misplaced aspirin for few days and was not taking it. It seems that the patient was compliant with Plavix. Cardiology is involved for cardiac aspects of care. Patient is known to our practice from before. It is of note that serial troponin (high sensitive) has been negative. EKGs revealed old myocardial infarction and nonspecific ST-T changes (secondary to LVH). No JVD. [place] and moist mucosa. No carotid bruit. Not using accessory muscles of breathing. Lungs are clear to auscultation. Cardiac: Regular, no thrill/gallop. Abdomen is soft. Bowel sounds positive. No hepatomegaly. There is no peripheral edema. There is tenderness today left shoulder. Past medical history includes obesity, CKD, diabetes mellitus, hypertension, coronary artery disease and status post PCI (late 2023), systolic heart failure, has had cholecystectomy, urethral cancer, status post tonsillectomy and history of cauda equina syndrome. She has had laminectomy before. Echocardiogram of February 23, 2024 (performed in the office) revealed ejection fraction of 30-35%, impaired relaxation of left ventricle, moderate left atrial enlargement, mild right atrial enlargement, mild TR/MR, anteroseptal hypokinesia and right ventricular systolic pressure of 41 mm Hg Echocardiogram of October 19, 2024 had reported ejection fraction of 45-50%, mild right ventricular enlargement with could systolic function of the right side, mild biatrial enlargement, trace MR/TR and right ventricular systolic pressure of 34 mm Hg Hemoglobin: 13.0 - 11.3 WBC: 8.8 - 6.6 Creatinine: 1.13 - 1.21 Potassium: 4.1 - 4.5 Troponin (high sensitive): 28 - 30 - 30 - 32 - 32 - 33 BNP: 134.30 D-dimer: 0.60 Chest xry revealed: IMPRESSION: No abnormality demonstrated. EKG revealed sinus rhythm, LVH with its secondary changes, old inferior [place] and poor R-wave progression. Tele reveals sinus rhythm Echocardiogram revealed: Left ventricle: Left ventricle is normal-sized. LVEF was around 45%. Mild diffuse hypokinesis of left ventricle was seen. Mild concentric left ventricular hypertrophy was seen. Right ventricle was normal- sized with normal systolic function. Both atria were normal-sized. Aortic valve was trileaflet. There was no aortic insufficiency/stenosis. There was mild mitral regurgitation. There was trace tricuspid regurgitation and pulmonary valve insufficiency. Right ventricular systolic pressure was assessed at 24 mm Hg (normal level). IVC was normal-sized with reduced respiratory variation. There was no pericardial effusion. Patient is a 55-year-old female who presented with chest discomfort which woke her up. Reportedly, the pain was comparable to the time that she had PCI. Presentation questions unstable angina. She did have few days of missing aspirin which could have contributed to the clinical picture. She has presented with chest discomfort repeatedly. Chest pain Unstable angina Coronary artery disease, status post PCI Congestive heart failure, preserved EF CKD Diabetes mellitus Hypertension Cardiac suggestive for management: Manage on telemetry Follow up electrolytes and kidney function tests and correct abnormalities Lovenox, therapeutic dose for now Continue Aspirin/Plavix To proceed with cardiac catheterization for further evaluation of unstable angina and repeated chest pains Further evaluation and management depends on the above and clinical course A total of 55 minutes was spent reviewing the patient record, examining the patient, making a diagnostic and therapeutic plan, discussing this plan with medical personnel, following up on diagnostic studies and following the patient for clinical stability excluding any and all procedures. At least 50% of this time was spent in direct, [id number] contact. Thank you for allowing me to participate in this patient's care. Further recommendations will depend on patient's clinical course. Please do not hesitate to contact me if you have any questions or concerns. This medical document was created using electronic medical record system with [employer] computerized dictation system. Although this document has been carefully reviewed, there may still be some phonetic and typographical errors. These areas are purely typographical due to the imperfection of the software programs, and do not reflect any compromise in the patient's medical care. Plan discussed with: Patient, Other (nurse) TALYA MEDELLIN MD Nov 24, 2024 06:57
[2024-11-24] MEDS: ENOXAPARIN SOD 40 MG/0.4 ML SYRINGE SC SCH (10:00)
[2024-11-24] MEDS: CLOPIDOGREL BISULFATE 75 MG TAB PO SCH (10:00)
[2024-11-24] MEDS ORDERED: IODIXANOL 320MG/ML 100ML BTL IV ONE (10:25)
[2024-11-24] MEDS ORDERED: ANGIOMAX 250 MG VIAL IV ONE (10:34)
[2024-11-24] MEDS ORDERED: VERAPAMIL 2.5MG/ML INJ 2ML VIAL IV ONE (10:34)
[2024-11-24] MEDS ORDERED: HEPARIN SODIUM (PORCINE) 5000 UNITS/ML 1ML VIAL ONE (10:34)
[2024-11-24] MEDS ORDERED: MIDAZOLAM HCL 2MG/2ML 2ml VIAL (1mg/ml) ONE (10:35)
[2024-11-24] MEDS ORDERED: fentaNYL CITRATE 100 MCG/2 ML VL ONE (10:35)
[2024-11-24] MEDS ORDERED: LIDOCAINE 2%HCL (LOCAL ANESTH.) INJ 20ML MDV ONE (10:35)
[2024-11-24] MEDS ORDERED: SODIUM CHL 0.9% 0 ML ONE (10:35)
--- NOTE | 2024-11-24 11:34 | DVHOP2 ---
Operative Report Procedures performed: Left heart catheterization and bilateral coronary angiogram Moderate sedation Diagnosis: Nonobstructive coronary artery disease Patent stent in proximal to mid LAD. LVEF of 45% Normal EDP Cardiac suggestion for management: Optimized medical therapy Lifestyle and risk factor modification Continuation of antiplatelet for previously implanted stent is advised Findings: LVEF: 45% with anterior hypokinesia LVEDP: 10 mm Hg There was no transaortic valve pressure gradient Left main: Left main was coming off the left sinus of Valsalva. There was no angiographic evidence of disease in left main. LAD: LAD was coming off the left main. Proximal to mid LAD had patent stent with no in stent stenosis. Prior to the stent, there was a 30% focal lesion in LAD. There was a high diagonal which was a large-sized bifurcating vessel. In the diagonal and prior to the bifurcation, there was focal sequential 40% lesions. LCX: LCX was a large caliber vessel which came off the left main. OM1 was a medium-sized vessel. OM2 was a large-sized vessel. Distal LCX had 50% focal l esion. FFR (CathAs Seen on TV) of LCX lesion was performed. The result of FFR was 0.86 and was considered hemodynamically non-significant. RCA: RCA was coming off the right sinus of Valsalva. It was a dominant vessel and provided RPDA. Proximal RCA had focal 30% lesion. Presentation: Patient is a 55-year-old female who presented with chest pain/unstable angina to the hospital. Has had repeated presentation for the same also. Does have old history of coronary artery disease and has had PCI before. Echocardiogram revealed ejection fraction of 45%. With diagnosis of unstable angina, the patient was sent for cardiac catheterization. Procedure: After obtaining informed consent, the patient was brought to the construction laborer. She was prepped and draped in sterile fashion. 2 mg of Versed and 75 mcg of fentanyl were used for moderate sedation which lasted more than 30 minutes. Using modified Seldinger technique, the right radial artery was accessed and a 6 [place] slender sheath was inserted into it. A 5 Marshall[place] tiger 4 diagnostic catheter was used to perform left heart catheterization (obtaining pressures and performing left ventriculography) and bilateral coronary angiography. We did recognize patent stent in LAD and the disease in diagonals. LCX revealed up to 50% focal lesion. We decided to proceed with FFR. [employer]' FFR of the LCX was performed and the result was 0.87. It was consider hemodynamically non- significant. There was no indication for any transcatheter revascularization. There was no dissection/hematoma/perforation. Patient tolerated the procedure with no complication. Right radial artery access site was managed by deploying a TR band. Fluoroscopy time: 4 minutes and 14 seconds contrast: 60 mL of Visipaque TALYA MEDELLIN MD Nov 24, 2024 11:34
--- NOTE | 2024-11-24 21:19 | DVHPN2 ---
Progress Note Date Seen: Nov 24, 2024 Medical Necessity Reason Pt with a Central, PICC or Fol: No Subjective Review of Systems: CVS:Normal, RESPIRATORY:Normal, GI:Normal, :Normal, NEURO:Normal Objective vital signs Vital Sign Date Time Temp Pulse Resp B/P (MAP) Pulse Ox O2 Delivery O2 Flow Rate FiO2 11/24/24 18:29 153/71 11/24/24 17:45 85 18 11/24/24 16:52 98.0 100 98.0 11/24/24 08:00 Room Air* 0 21 Total Intake and Output 11/23/24 11/23/24 11/24/24 15:00 23:00 07:00 Intake Total 400 ml Balance 400 ml medications Current Medications Medications Dose Ordered Sig/Lavon Route Start Time Stop Time Status Last Admin Dose Admin Acetaminophen/ Hydrocodone Bitart 1 tab Q4HP PRN PO 11/23/24 15:00 Hold 11/23/24 16:17 1 TAB Temazepam 15 mg QHSP PRN PO 11/23/24 15:00 Ondansetron HCl 4 mg Q4HP PRN IV 11/23/24 15:00 Enoxaparin Sodium 40 mg DAILY SC 11/24/24 10:00 Acetaminophen 650 mg Q6HP PRN PO 11/23/24 15:00 Morphine Sulfate 2 mg Q4HPRN PRN IV 11/23/24 15:00 11/24/24 17:15 2 MG Pantoprazole Sodium 40 mg DAILY IV 11/23/24 15:00 11/23/24 15:40 40 MG Nitroglycerin 0.4 mg Q5MINP PRN SL 11/23/24 15:00 Morphine Sulfate 2 mg Q30M PRN IV 11/23/24 15:00 11/23/24 20:53 2 MG Diagnostic Test (Pha) 1 strip Q6HR 11/23/24 18:00 11/24/24 18:34 1 STRIP Insulin Human Regular Q6HR SC 11/23/24 18:00 11/24/24 18:33 6 UNITS Dextrose 50 ml UD PRN IV 11/23/24 15:00 Clopidogrel Bisulfate 75 mg DAILY PO 11/24/24 10:00 Patient Own Medication 1 tab DAILY PO 11/24/24 10:00 Isosorbide Mononitrate 30 mg DAILY PO 11/23/24 16:15 11/23/24 16:37 30 MG Carvedilol 12.5 mg Q12HR PO 11/23/24 16:30 11/24/24 00:00 12.5 MG Losartan Potassium 50 mg BID PO 11/23/24 16:30 11/23/24 23:59 50 MG Hydralazine HCl 10 mg Q6HP PRN IV 11/23/24 16:30 11/24/24 18:29 10 MG Oxycodone/ Acetaminophen 2 tab Q6HP PRN PO 11/23/24 17:45 11/24/24 03:15 2 TAB Examination: GENERAL:Normal, LUNGS:Normal, CVS:Normal, ABDOMEN:Normal, SKIN:Normal, NEURO:Normal laboratory and microbiology Laboratory Tests 11/24/24 04:30 Test 11/24/24 04:30 Range/Units Serum Glucose 196 H 74-106 mg/dL Labs and/or images reviewed: Labs reviewed by me, Image(s) reviewed by me Problem List/Assessment/Plan Problem List/Assessment/Plan 1. Unstable angina Monitor EKG, cardiology consult, trend troponin 2. DM II & hyperglycemia Monitor, insulin ss, Hgb A1C, lipid panel 3. Morbid Obesity Monitor, PPI, DVT prophylaxis 4. Uncontrolled HTN Subjective: Awake and alert Objective: Patient was admitted for unstable angina, troponins remain negative. Patient is S/P left heart catheterization by Dr. Medel which revealed patent stents and nonobstructive lesions. Patient was cleared for discharge by Dr. Medel we will continue to monitor overnight and plan for discharge in a.m. Plan: We will discharge in the a.m. Plan discussed with: Patient Date of Service: Nov 24, 2024 Billing Provider: LENA DIANA MD Common Visit Codes: [id number] INP/OBS CARE (MOD) PORFIRIO SEAY IMMIGRATION INVESTIGATOR Nov 24, 2024 21:19
[2024-11-25 01:00] VITALS: BP 172/74; PULSE 85; RESP 18; TEMP 97.5; O2SAT 97
[2024-11-25] MEDS: SODIUM CHLORIDE 0.9% 1,000 ML IV SCH (03:26)
[2024-11-25 07:31] LABS: Anion Gap 7 (5-15); Carbon Dioxide 26 mmol/L (20-31); Chloride 103 mmol/L (98-107); Potassium 4.2 mmol/L (3.5-5.1)
[2024-11-25 07:33] LABS: Calcium 9.4 mg/dL (8.7-10.4)
[2024-11-25 07:35] VITALS: PULSE 75
[2024-11-25 07:37] LABS: Blood Urea Nitrogen 22 mg/dL (9-23)
[2024-11-25 07:48] LABS: Glucose 208 mg/dL (74-106); Sodium 136 mmol/L (136-145)
[2024-11-25 08:00] VITALS: PULSE 81; RESP 19; O2SAT 99
[2024-11-25] MEDS: TEMAZEPAM 15 MG CAP PO PRN (08:41)
--- NOTE | 2024-11-25 08:45 | DVHPN2 ---
Progress Note - Dictate Date Seen: Nov 25, 2024 Medical Necessity Reason Pt with a Central, PICC or Fol: No vital signs Vital Sign Date Time Temp Pulse Resp B/P (MAP) Pulse Ox O2 Delivery O2 Flow Rate FiO2 11/25/24 05:49 78 18 154/72 11/25/24 01:00 97.5 97 97.5 11/24/24 20:00 Room Air* 0 21 Total Intake and Output 11/24/24 11/24/24 11/25/24 15:00 23:00 07:00 Intake Total 740 ml 150 ml Balance 740 ml 150 ml medications Current Medications Medications Dose Ordered Sig/Lavon Route Start Time Stop Time Status Last Admin Dose Admin Acetaminophen/ Hydrocodone Bitart 1 tab Q4HP PRN PO 11/23/24 15:00 Hold 11/23/24 16:17 1 TAB Temazepam 15 mg QHSP PRN PO 11/23/24 15:00 Ondansetron HCl 4 mg Q4HP PRN IV 11/23/24 15:00 Enoxaparin Sodium 40 mg DAILY SC 11/24/24 10:00 Acetaminophen 650 mg Q6HP PRN PO 11/23/24 15:00 Morphine Sulfate 2 mg Q4HPRN PRN IV 11/23/24 15:00 11/25/24 05:19 2 MG Pantoprazole Sodium 40 mg DAILY IV 11/23/24 15:00 11/23/24 15:40 40 MG Nitroglycerin 0.4 mg Q5MINP PRN SL 11/23/24 15:00 Morphine Sulfate 2 mg Q30M PRN IV 11/23/24 15:00 11/23/24 20:53 2 MG Diagnostic Test (Pha) 1 strip Q6HR 11/23/24 18:00 11/25/24 05:21 1 STRIP Insulin Human Regular Q6HR SC 11/23/24 18:00 11/25/24 05:22 3 UNITS Dextrose 50 ml UD PRN IV 11/23/24 15:00 Clopidogrel Bisulfate 75 mg DAILY PO 11/24/24 10:00 Patient Own Medication 1 tab DAILY PO 11/24/24 10:00 Isosorbide Mononitrate 30 mg DAILY PO 11/23/24 16:15 11/23/24 16:37 30 MG Carvedilol 12.5 mg Q12HR PO 11/23/24 16:30 11/24/24 21:14 12.5 MG Losartan Potassium 50 mg BID PO 11/23/24 16:30 11/24/24 21:14 50 MG Hydralazine HCl 10 mg Q6HP PRN IV 11/23/24 16:30 11/24/24 18:29 10 MG Oxycodone/ Acetaminophen 2 tab Q6HP PRN PO 11/23/24 17:45 11/25/24 02:11 2 TAB Sodium Chloride 1,000 ml @ 50 mls/hr Q20H IV 11/24/24 21:30 11/25/24 03:26 50 MLS/HR laboratory and microbiology Laboratory Tests 11/25/24 06:43 11/24/24 04:30 Test 11/25/24 06:43 Range/Units Serum Glucose 208 H 74-106 mg/dL Assessment/Plan Patient is a 55-year-old female who was transferred from [facility] for chest pain. She originally presented to [facility] for chest pain which started at midnight. She mentions that it was severe discomfort like heaviness sitting on the chest and was comparable to the time that she ended up having stents in the heart. She had multiple stents in [facility] in late 2023. It seems that the patient had misplaced aspirin for few days and was not taking it. It seems that the patient was compliant with Plavix. Cardiology is involved for cardiac aspects of care. Patient is known to our practice from before. It is of note that serial troponin (high sensitive) has been negative. EKGs revealed old myocardial infarction and nonspecific ST-T changes (secondary to LVH). No JVD. [place] and moist mucosa. No carotid bruit. Not using accessory muscles of breathing. Lungs are clear to auscultation. Cardiac: Regular, no thrill/gallop. Abdomen is soft. Bowel sounds positive. No hepatomegaly. There is no peripheral edema. There is tenderness today left shoulder. Past medical history includes obesity, CKD, diabetes mellitus, hypertension, coronary artery disease and status post PCI (late 2023), systolic heart failure, has had cholecystectomy, urethral cancer, status post tonsillectomy and history of cauda equina syndrome. She has had laminectomy before. Echocardiogram of February 23, 2024 (performed in the office) revealed ejection fraction of 30-35%, impaired relaxation of left ventricle, moderate left atrial enlargement, mild right atrial enlargement, mild TR/MR, anteroseptal hypokinesia and right ventricular systolic pressure of 41 mm Hg Echocardiogram of October 19, 2024 had reported ejection fraction of 45-50%, mild right ventricular enlargement with could systolic function of the right side, mild biatrial enlargement, trace MR/TR and right ventricular systolic pressure of 34 mm Hg Hemoglobin: 13.0 - 11.3 WBC: 8.8 - 6.6 Creatinine: 1.13 - 1.21 - 1.10 Potassium: 4.1 - 4.5 - 4.2 Troponin (high sensitive): 28 - 30 - 30 - 32 - 32 - 33 BNP: 134.30 D-dimer: 0.60 Chest xry revealed: IMPRESSION: No abnormality demonstrated. EKG revealed sinus rhythm, LVH with its secondary changes, old inferior OK and poor R-wave progression. Tele reveals sinus rhythm Echocardiogram revealed: Left ventricle: Left ventricle is normal-sized. LVEF was around 45%. Mild diffuse hypokinesis of left ventricle was seen. Mild concentric left ventricular hypertrophy was seen. Right ventricle was normal- sized with normal systolic function. Both atria were normal-sized. Aortic valve was trileaflet. There was no aortic insufficiency/stenosis. There was mild mitral regurgitation. There was trace tricuspid regurgitation and pulmonary valve insufficiency. Right ventricular systolic pressure was assessed at 24 mm Hg (normal level). IVC was normal-sized with reduced respiratory variation. There was no pericardial effusion. Left heart cath revealed: Nonobstructive coronary artery disease; Patent stent in proximal to mid LAD. LVEF of 45%; Normal EDP; Cardiac suggestion for management: Optimized medical therapy; Lifestyle and risk factor modification; Continuation of antiplatelet for previously implanted stent is advised Patient is a 55-year-old female who presented with chest discomfort which woke her up. Reportedly, the pain was comparable to the time that she had PCI. Presentation questions unstable angina. She did have few days of missing aspirin which could have contributed to the clinical picture. She has presented with chest discomfort repeatedly. Chest pain Unstable angina Coronary artery disease, status post PCI Congestive heart failure, preserved EF CKD Diabetes mellitus Hypertension Cardiac suggestive for management: Manage on telemetry Follow up electrolytes and kidney function tests and correct abnormalities Lovenox, therapeutic dose for now Continue Aspirin/Plavix Left heart catheterization was performed. It revealed patent stents in LAD and nonobstructive lesions. Suggestion for management includes optimized medical therapy. Continuation of dual antiplatelet therapy for previously implanted stent (late last year) is suggested. Cardiac-milton, the patient can be followed as outpatient. Further evaluation and management depends on the above and clinical course A total of 55 minutes was spent reviewing the patient record, examining the patient, making a diagnostic and therapeutic plan, discussing this plan with medical personnel, following up on diagnostic studies and following the patient for clinical stability excluding any and all procedures. At least 50% of this time was spent in direct, [id number] contact. Thank you for allowing me to participate in this patient's care. Further recommendations will depend on patient's clinical course. Please do not hesitate to contact me if you have any questions or concerns. This medical document was created using electronic medical record system with [employer] computerized dictation system. Although this document has been carefully reviewed, there may still be some phonetic and typographical errors. These areas are purely typographical due to the imperfection of the software programs, and do not reflect any compromise in the patient's medical care. Plan discussed with: Patient, Other (nurse) TALYA MEDELLIN MD Nov 25, 2024 08:45
[2024-11-25 08:58] VITALS: BP 156/79; PULSE 81; RESP 19; TEMP 98; O2SAT 99
[2024-11-25] MEDS ORDERED: LOSA-534 PO (11:31)
[2024-11-25] MEDS ORDERED: ASPI-325 PO (11:31)
[2024-11-25] MEDS ORDERED: CLOP75TA28 PO (11:32)
[2024-11-25 13:17] VITALS: BP 121/60; PULSE 75; RESP 19; TEMP 98; O2SAT 95
--- NOTE | 2024-11-25 20:44 | DVHDS2 ---
Discharge Summary Date of Admission Nov 23, 2024 at 14:56 Date of Discharge: Nov 25, 2024 Admitting Diagnosis Chest pain Labs/Diagnostic Data: Laboratory Results Test 11/25/24 06:43 11/25/24 05:10 11/24/24 04:30 11/24/24 01:40 Sodium Level 136 mmol/L (136-145) Potassium Level 4.2 mmol/L (3.5-5.1) Chloride Level 103 mmol/L (98-107) Carbon Dioxide Level 26 mmol/L (20-31) Anion Gap 7 (5-15) Blood Urea Nitrogen 22 mg/dL (9-23) Creatinine 1.10 mg/dL (0.550-1.02) Glomerular Filtration Rate Calc 59 mL/min (>90) BUN/Creatinine Ratio 20.0 (10.0-20.0) Serum Glucose 208 mg/dL (74-106) Calcium Level 9.4 mg/dL (8.7-10.4) POC Glucose 197 mg/dl (70-106) White Blood Count 6.6 10^3/uL (4.4-10.8) Red Blood Count 3.62 10^6/uL (4.0-5.20) Hemoglobin 11.3 g/dL (12.2-16.2) Hematocrit 32.8 % (36.0-46.0) Mean Corpuscular Volume 90.6 fL (80.0-100.0) Mean Corpuscular Hemoglobin 31.2 pg (28.0-32.0) Mean Corpuscular Hemoglobin Concent 34.5 g/dL (32.0-36.0) Red Cell Distribution Width 15.0 % (11.8-14.3) Platelet Count 179 10^3/uL (140-450) Mean Platelet Volume 8.0 fL (6.9-10.8) Neutrophils (%) (Auto) 51.4 % (37.0-80.0) Lymphocytes (%) (Auto) 37.3 % (10.0-50.0) Monocytes (%) (Auto) 7.8 % (0.0-12.0) Eosinophils (%) (Auto) 2.2 % (0.0-7.0) Basophils (%) (Auto) 1.3 % (0.0-2.0) Neutrophils # (Auto) 3.4 10 ^3/uL (1.6-8.6) Lymphocytes # (Auto) 2.5 10 ^3/uL (0.4-5.4) Monocytes # (Auto) 0.5 10 ^3/uL (0-1.3) Eosinophils # (Auto) 0.1 10 ^3/uL (0-0.8) Basophils # (Auto) 0.1 10 ^3/uL (0-0.2) Nucleated Red Blood Cells 0.4 % Total Bilirubin 0.2 mg/dL (0.2-1.0) Aspartate Amino Transferase (AST) 27 U/L (13-40) Alanine Aminotransferase (ALT) 18 U/L (7-40) Alkaline Phosphatase 59 U/L (46-116) Total Protein 6.1 g/dL (5.7-8.2) Albumin 3.4 g/dL (3.2-4.8) Prothrombin Time 10.8 sec (9.3-11.8) Prothrombin Time INR 1.02 (0.9-1.15) Activated Partial Thromboplast Time 29.1 SEC (24.5-34.5) Test 11/23/24 21:14 11/23/24 10:21 11/23/24 10:20 D-Dimer, Quantitative 0.60 mg/L FEU (0.0-0.49) Troponin I High Sensitivity 33 ng/L (</=34) Urine Color Light-yellow (Yellow) Urine Clarity Clear (Clear) Urine pH 6.5 (5.0-9.0) Urine Specific [place] 1.027 (1.001-1.035) Urine Protein 3+ (Negative) Urine Ketones Negative (Negative) Urine Blood 2+ /uL (Negative) Urine Nitrite Negative (Negative) Urine Bilirubin Negative (Negative) Urine Urobilinogen Normal mg/dL (Negative) Urine Leukocyte Esterase Negative /uL (Negative) Urine RBC 8 /hpf (0 - 4) Urine Microscopic WBC 4 /HPF (0-5) Urine Squamous Epithelial Cells Few /hpf (<5) Urine Bacteria None seen /hpf (None Seen) Urine Glucose 4+ mg/dL (Normal) B-Type Natriuretic Peptide 134.30 pg/mL (0-100) Other Laboratory Tests 11/25/24 06:43 11/24/24 04:30 Brief Hx & Hospital Course: Patient was admitted for chest pain likely from unstable angina. Patient did undergo left heart catheterization by Dr. Medel, ACS was ruled out. Per movers heart catheterization did not show any obstructive lesions. Patient was seen and cleared for discharge by Dr. Medel. Patient needs to continue aspirin and Plavix upon discharge per Cardiology. Patient was sent home on these medication. Patient left prior to being handed discharge paperwork. Patient reported she was having severe neuropathy to bilateral extremities and stating that she was unable to walk. However patient left the room without any discharge paperwork. Condition at Discharge: Fair Final Diagnosis/Problems List 1. Unstable angina 2. DM II & hyperglycemia 3. Morbid Obesity 4. Uncontrolled HTN Discharge Disposition: Home Discharge Instruct/Medications Diet: Cardiac 2g Na,low cholest Activity: No Restrictions, As Tolerated Follow Up/Referral: PCP within 1 week cardiology within 1 week Discharge Statement: "Patient was advised to return to the ER or call 911 if any headaches, dizziness, shortness of breath, chest pain, abdominal pain, bleeding, fevers, or worsening of medical condition. Patient was counseled about treatment plan, medications, possible side effects, patientverbalized understanding. All questions were answered to the best of my ability. This discharge took greater then 30 minutes in planning, reviewing documentation, counseling the patient, and discussing with other team members." ASSESSMENT ASSESSMENT Assessment 1. Unstable angina 2. DM II & hyperglycemia 3. Morbid Obesity 4. Uncontrolled HTN [facility]IRIO SE[facility] Nov 25, 2024 20:44
== END 2024-11-25 15:50 | disposition left against medical advice (07) | DRG 191 ==
LOC: EDUNIT# 10:06 → EDBD 10:06 → ER 10:09 → OVERFLOW 14:56 → TELE-WESTW 22:11
PROVIDERS: ADMIT Nurse Practitioner; ATTEND Nurse Practitioner
PROC: B211YZZ Fluoroscopy of Multiple Coronary Arteries using Other Contrast (ICD-10-PCS; principal; 2024-11-24)
PROC: B215YZZ Fluoroscopy of Left Heart using Other Contrast (ICD-10-PCS; 2024-11-24)
PROC: 4A023N7 Measurement of Cardiac Sampling and Pressure, Left Heart, Percutaneous Approach (ICD-10-PCS; 2024-11-24)
PROC: 4A033BC Measurement of Arterial Pressure, Coronary, Percutaneous Approach (ICD-10-PCS; 2024-11-24)
DX: I20.0 Unstable angina (principal); E11.22 Type 2 diabetes mellitus with diabetic chronic kidney disease; I13.0 Hypertensive heart and chronic kidney disease with heart failure and stage 1 through stage 4 chronic kidney disease, or unspecified chronic kidney disease; I50.32 Chronic diastolic (congestive) heart failure; E11.65 Type 2 diabetes mellitus with hyperglycemia; N18.9 Chronic kidney disease, unspecified; Z98.61 Coronary angioplasty status; Z53.29 Procedure and treatment not carried out because of patient's decision for other reasons; G83.4 Cauda equina syndrome; I16.0 Hypertensive urgency; E66.01 Morbid (severe) obesity due to excess calories; Z85.54 Personal history of malignant neoplasm of ureter; Z90.49 Acquired absence of other specified parts of digestive tract; Z88.8 Allergy status to other drugs, medicaments and biological substances; Z91.012 Allergy to eggs; Z79.899 Other long term (current) drug therapy; Z79.891 Long term (current) use of opiate analgesic; Z98.891 History of uterine scar from previous surgery; Z82.49 Family history of ischemic heart disease and other diseases of the circulatory system; Z68.38 Body mass index [BMI] 38.0-38.9, adult; I25.2 Old myocardial infarction; Z79.84 Long term (current) use of oral hypoglycemic drugs; Z87.891 Personal history of nicotine dependence; Z79.02 Long term (current) use of antithrombotics/antiplatelets; Z79.82 Long term (current) use of aspirin; Z85.59 Personal history of malignant neoplasm of other urinary tract organ
CPT/HCPCS: 36415; 71046; 80048; 80053; 81001; 82962; 83880; 84484; 85025; 85379; 85610; 85730; 86850; 86900; 86901; 93005; 93306; 93458; 93571; 96372; 96374; 96375; 99152; 99291; 99292; G0378; J1815; J2250; J2405; J2470; Q9967